=== PATIENT | male | born 1930 | race Caucasian/White ===

== ENCOUNTER → 2016-09-27 14:21 | Emergency (ER) | payer MEDICARE ==
--- NOTE | 2016-09-27 15:21 | RAD ---
Indication: Chest pain. Single frontal view of the chest performed at 1500 hours was reviewed. Comparison is made with previous exam dated November 24, 2015. Cardiomegaly. Lung steve demonstrate no pleural fluid, pneumonia or pneumothorax. IMPRESSION: CARDIOMEGALY WITHOUT EVIDENCE OF ACTIVE CARDIOPULMONARY DISEASE.
[2016-09-27 15:28] LABS: Hematocrit 33 % (42-52); Mean Corpuscular HGB Conc 33 g/dl (31-36); Mean Corpuscular Hemoglobin 33 pg (27-31); Mean Corpuscular Volume 99 fL (80-94); Mean Platelet Volume 8 um3 (7.4-10.4); Red Blood Count 3.37 10^6/ul (4.0-5.4); Red Cell Distribution Width 15 % (10.5-15); White Blood Count 6.4 10^3/ul (3.5-10.8)
[2016-09-27 15:44] LABS: Albumin 3.6 g/dL (3.2-5.2); BUN/Creatinine Ratio 16.5 (8-20); Calcium 8.7 mg/dL (8.6-10.3); EGFR African American 43.8 (>60); Globulin 2.8 g/dL (2-4); Potassium 4.8 mmol/L (3.5-5.0); Total Bilirubin 1.1 mg/dL (0.2-1.0); Total Protein 6.4 g/dL (6.4-8.9)
[2016-09-27 15:45] LABS: Troponin I 0.03 ng/mL (<0.04)
--- NOTE | 2016-09-27 17:32 | RAD ---
HISTORY: Abdominal pain COMPARISONS: CT dated November 18, 2006 TECHNIQUE: Multiple transverse and longitudinal ultrasound images were obtained of the right upper quadrant of the abdomen using grayscale and color Doppler imaging. FINDINGS: The study is limited by patient bowel gas. LIVER: The liver is normal in shape, size, contour, and echogenicity. There are no focal parenchymal masses. There is normal hepatopedal flow of the portal vein on Doppler imaging. BILIARY TREE: There is ectasia of the common duct. The common duct measures 1.1 cm. GALLBLADDER: The patient is status post cholecystectomy. PANCREAS: The pancreas is obscured by overlying bowel gas. RIGHT KIDNEY: The right kidney is normal in shape, size, contour, and echogenicity. There is no hydronephrosis or nephrolithiasis. The right kidney measures 10 x 5 x 4.4 cm. AORTA AND IVC: Obscured by overlying bowel FLUID: There are no pleural effusions. There is no free fluid within the hepatorenal recess. OTHER FINDINGS: None. IMPRESSION: 1. LIMITED STUDY. 2. STATUS POST MASTECTOMY. 3. ECTASIA OF THE COMMON BILE DUCT.
[2016-09-27 18:14] VITALS: BP 133/44
--- NOTE | 2016-09-27 23:12 | ED ---
Theodore Harding Benjamin, scribed for Michael Santiago MD on 09/27/16 at 1557 . HPI Chest Pain - HPI Summary HPI Summary: 86yo male c/o chest pain last night around 11pm that lasted about 2 hours, Pt describes the pain as sharp and heavy. Pt has hx of CAD and cardiac stents. Pt had a stent placed in 1 month ago. Pt came to ED after consulting his doctor. - History of Current Complaint Chief Complaint: EDChestPainROMI Time Seen by Provider: 09/27/16 14:44 Hx Obtained From: Patient Onset/Duration: Started Hours Ago - 18 hours ago, Resolved Timing: Constant Initial Severity: Moderate Current Severity: Mild Pain Intensity: 0 Chest Pain Location: Diffuse Chest Pain Radiates: No Character: Pressure/Squeezing, Sharp/Stabbing Aggravating Factor(s): Nothing Alleviating Factor(s): Nothing Associated Signs and Symptoms: Positive: Negative - Additional Pertinent History Primary Care Physician: MOLLY - Allergy/Home Medications Allergies/Adverse Reactions: Allergies Allergy/AdvReac Type Severity Reaction Status Date / Time No Known Allergies Allergy Verified 01/08/15 13:23 PMH/Surg Hx/FS Hx/Imm Hx Endocrine/Hematology History: Reports: Hx Diabetes Cardiovascular History: Reports: Hx Aneurysm - AAA, Hx Angina, Hx Coronary Artery Disease - STENT, Hx Hypertension, Other Cardiovascular Problems/ Disorders - CAD, IDDM II Denies: Hx Congestive Heart Failure Respiratory History: Reports: Hx Chronic Obstructive Pulmonary Disease (COPD) History: Denies: Hx Dialysis, Hx Renal Disease Sensory History: Reports: Hx Contacts or Glasses, Hx Hearing Aid - left Opthamlomology History: Reports: Hx Contacts or Glasses - Cancer History Cancer Type, Location and Year: prostate - Surgical History Surgery Procedure, Year, and Place: cholecystectomy, [facility] w/ 4 stents,2012, right leg artery replacement, anerysm stent leg, Infectious Disease History: No Infectious Disease History: Denies: Traveled Outside the [place] in Last 30 Days - Family History Known Family History: Positive: Cardiac Disease - Social History Occupation: Retired Lives: With Family Alcohol Use: None Substance Use Type: Reports: None Hx Tobacco Use: Yes Smoking Status (MU): Current Every Day Smoker Type: Cigarettes Amount Used/How Often: 12- 14 cigarettes a day Have You Smoked in the Last Year: Yes Review of Systems Constitutional: Negative Eyes: Negative ENT: Negative Positive: Chest Pain - resolved now Respiratory: Negative Gastrointestinal: Negative Genitourinary: Negative Musculoskeletal: Negative Skin: Negative Neurological: Negative Psychological: Normal All Other Systems Reviewed And Are Negative: Yes Physical Exam Triage Information Reviewed: Yes Vital Signs On Initial Exam: Initial Vitals Temp Pulse Resp BP Pulse Ox 97.1 F 51 20 151/53 100 09/27/16 14:24 09/27/16 14:24 09/27/16 14:24 09/27/16 14:24 09/27/16 14:24 Vital Signs Reviewed: Yes Appearance: Positive: Well-Appearing, No Pain Distress, Well-Nourished Skin: Positive: Warm, Skin Color Reflects Adequate Perfusion, Dry Head/Face: Positive: Normal Head/Face Inspection Eyes: Positive: Normal, EOMI, SAMMY ENT: Positive: Normal ENT inspection, Hearing grossly normal, TMs normal Neck: Positive: Supple, Nontender Respiratory/Lung Sounds: Positive: Clear to Auscultation, Breath Sounds Present Cardiovascular: Positive: RRR Abdomen Description: Positive: Nontender, No Organomegaly, Soft Bowel Sounds: Positive: Present Musculoskeletal: Positive: Normal, Strength/ROM Intact Neurological: Positive: Normal, Sensory/Motor Intact, Alert, Oriented to Person Place, Time, CN Intact II-III Psychiatric: Positive: Affect/Mood Appropriate - Piper Coma Scale Coma Scale Total: 15 Diagnostics - Vital Signs Vital Signs Temp Pulse Resp BP Pulse Ox 09/27/16 14:59 44 27 99 09/27/16 14:45 48 09/27/16 14:44 52 23 97 09/27/16 14:43 172/58 09/27/16 14:27 97.9 F 50 16 151/53 99 09/27/16 14:24 97.1 F 51 20 151/53 100 - Laboratory Lab Results: Lab Results 09/27/16 09/27/16 09/27/16 Range/Units 15:15 15:15 15:15 WBC 6.4 (3.5-10.8) 10^3/ul RBC 3.37 L (4.0-5.4) 10^6/ul Hgb 11.0 L (14.0-18.0) g/dl Hct 33 L (42-52) % MCV 99 H (80-94) fL MCH 33 H (27-31) pg MCHC 33 (31-36) g/dl RDW 15 (10.5-15) % Plt Count 135 L (150-450) 10^3/ul MPV 8 (7.4-10.4) um3 Neut % (Auto) 81.0 (38-83) % Lymph % (Auto) 7.1 L (25-47) % [place] % (Auto) 6.4 (1-9) % Eos % (Auto) 4.3 (0-6) % Baso % (Auto) 1.2 (0-2) % Absolute Neuts (auto) 5.2 (1.5-7.7) 10^3/ul Absolute Lymphs (auto) 0.5 L (1.0-4.8) 10^3/ul Absolute Monos (auto) 0.4 (0-0.8) 10^3/ul Absolute Eos (auto) 0.3 (0-0.6) 10^3/ul Absolute Basos (auto) 0.1 (0-0.2) 10^3/ul Absolute Nucleated RBC 0 10^3/ul Nucleated RBC % 0 INR (Anticoag Therapy) (0.89-1.11) Sodium 135 (133-145) mmol/L Potassium 4.8 (3.5-5.0) mmol/L Chloride 103 (101-111) mmol/L Carbon Dioxide 25 (22-32) mmol/L Anion Gap 7 (2-11) mmol/L BUN 31 H (6-24) mg/dL Creatinine 1.88 H (0.67-1.17) mg/dL Est GFR ( Amer) 43.8 (>60) Est GFR (Non-Af Amer) 34.0 (>60) BUN/Creatinine Ratio 16.5 (8-20) Glucose 183 H (70-100) mg/dL Lactic Acid 2.0 (0.5-2.0) mmol/L Calcium 8.7 (8.6-10.3) mg/dL Total Bilirubin 1.10 H (0.2-1.0) mg/dL AST 378 H (13-39) U/L ALT 273 H (7-52) U/L Alkaline Phosphatase 123 H (34-104) U/L Troponin I 0.03 (<0.04) ng/mL Total Protein 6.4 (6.4-8.9) g/dL Albumin 3.6 (3.2-5.2) g/dL Globulin 2.8 (2-4) g/dL Albumin/Globulin Ratio 1.3 (1-3) 05// Range/Units 15:15 WBC (3.5-10.8) 10^3/ul RBC (4.0-5.4) 10^6/ul Hgb (14.0-18.0) g/dl Hct (42-52) % MCV (80-94) fL MCH (27-31) pg MCHC (31-36) g/dl RDW (10.5-15) % Plt Count (150-450) 10^3/ul MPV (7.4-10.4) um3 Neut % (Auto) (38-83) % Lymph % (Auto) (25-47) % [place] % (Auto) (1-9) % Eos % (Auto) (0-6) % Baso % (Auto) (0-2) % Absolute Neuts (auto) (1.5-7.7) 10^3/ul Absolute Lymphs (auto) (1.0-4.8) 10^3/ul Absolute Monos (auto) (0-0.8) 10^3/ul Absolute Eos (auto) (0-0.6) 10^3/ul Absolute Basos (auto) (0-0.2) 10^3/ul Absolute Nucleated RBC 10^3/ul Nucleated RBC % INR (Anticoag Therapy) 1.01 (0.89-1.11) Sodium (133-145) mmol/L Potassium (3.5-5.0) mmol/L Chloride (101-111) mmol/L Carbon Dioxide (22-32) mmol/L Anion Gap (2-11) mmol/L BUN (6-24) mg/dL Creatinine (0.67-1.17) mg/dL Est GFR ( Amer) (>60) Est GFR (Non-Af Amer) (>60) BUN/Creatinine Ratio (8-20) Glucose (70-100) mg/dL Lactic Acid (0.5-2.0) mmol/L Calcium (8.6-10.3) mg/dL Total Bilirubin (0.2-1.0) mg/dL AST (13-39) U/L ALT (7-52) U/L Alkaline Phosphatase (34-104) U/L Troponin I (<0.04) ng/mL Total Protein (6.4-8.9) g/dL Albumin (3.2-5.2) g/dL Globulin (2-4) g/dL Albumin/Globulin Ratio (1-3) Result Diagrams: 09/27/16 15:15 09/27/16 15:15 Lab Statement: Any lab studies that have been ordered have been reviewed, and results considered in the medical decision making process. - Radiology CXR Xray Interpretation: No Acute Changes - IMPRESSION: CARDIOMEGALY WITHOUT EVIDENCE OF ACTIVE CARDIOPULMONARY DISEASE. Radiology Interpretation Completed By: Radiologist - Ultrasound No standard instances Ultrasound Interpretation: No Acute Changes - US Abdomen - IMPRESSION: 1. LIMITED STUDY. 2. STATUS POST MASTECTOMY. 3. ECTASIA OF THE COMMON BILE DUCT. Ultrasound Interpretation Completed By: Radiologist - EKG 1431. Cardiac Rate: Bradycardia EKG Rhythm: Sinus Bradycardia EKG Interpretation: RBBB. EKG Comparison: No Significant Change - compared to 11/25/15 Chest Pain Course/Dx - Course Course Of Treatment: Mr. Gamez came in about 12 hours after an episode of chest pain that lasted a couple hours. His W/U was unremarkable for cardiac issues but I did find that his transaminases were elevated. I R/U'd a common bile stone with U/S. It is possible that his high dose of lipitor is responsible and I recommended that he hold it and F/U first of the week. - Diagnoses Provider Diagnoses: Chest pain - Provider Notifications Discussed Care Of Patient With: Dr. Ayala (Interventionalist) @[id number]. Discharge - Discharge Plan Condition: Stable Disposition: HOME Patient Education Materials: Chest Pain (ED) Referrals: Lucila Shine MD [Medical Doctor] - Additional Instructions: Your liver enzymes were a little elevated today. This could be from your cholesterol medication and I would recommend holding it until the first of the week when you should follow up with your doctor at [facility]. The documentation as recorded by the Theodore baron Benjamin accurately reflects the service I personally performed and the decisions made by me, Micahel Santiago MD.
== END | disposition home or self-care (01) ==
LOC: ED 14:21
DX: R07.9 Chest pain, unspecified (principal); I25.10 Atherosclerotic heart disease of native coronary artery without angina pectoris; Z95.5 Presence of coronary angioplasty implant and graft; E11.9 Type 2 diabetes mellitus without complications; I71.4 Abdominal aortic aneurysm, without rupture; I45.10 Unspecified right bundle-branch block; J44.9 Chronic obstructive pulmonary disease, unspecified; F17.210 Nicotine dependence, cigarettes, uncomplicated
CPT/HCPCS: 36415; 71010; 76705; 80053; 83605; 84484; 85025; 85610; 93005; 99283

== ENCOUNTER 2017-09-29 07:03 | Observation (INO) | payer MEDICARE ==
[2017-09-29] MEDS ORDERED: NS 0.9% 1000 ML* 2,000 ML IV ONE (07:10)
[2017-09-29] MEDS ORDERED: NS 0.9% 1000 ML* 1,000 ML IV ONE (07:25)
[2017-09-29 07:35] LABS: ABS Basophils 0.1 10^3/ul (0-0.2); ABS Eosinophils 0.2 10^3/ul (0-0.6); ABS Lymphocytes 0.9 10^3/ul (1.0-4.8); ABS Monocytes 0.7 10^3/ul (0-0.8); ABS Neutrophils 6.2 10^3/ul (1.5-7.7); ABS Nucleated RBC 0 10^3/ul; Eosinophil % 2.7 % (0-6); Hematocrit 34 % (42-52); Hemoglobin 11.5 g/dl (14.0-18.0); Lymphocyte % 11.4 % (25-47); Mean Corpuscular HGB Conc 34 g/dl (31-36); Mean Corpuscular Hemoglobin 34 pg (27-31); Mean Corpuscular Volume 99 fL (80-94); Mean Platelet Volume 7.5 um3 (7.4-10.4); Nucleated Red Blood Cells % 0.1; Platelet Count 151 10^3/ul (150-450); Red Blood Count 3.44 10^6/ul (4.0-5.4); Red Cell Distribution Width 14 % (10.5-15); White Blood Count 8.1 10^3/ul (3.5-10.8)
[2017-09-29 07:43] LABS: INR 0.9 (0.77-1.02)
--- NOTE | 2017-09-29 07:50 | RAD ---
Indication: Facial twitching. Question seizure. Comparison: October 28, 2016 MRI brain and October 26, 2016 CT brain. Technique: Noncontrast CT vertex of skull through foramen magnum. Report: Mild to moderate prominence of the cerebral sulci most prominent along the bilateral sylvian fissures. Proportional enlargement of the ventricles. Patent basal cisterns. Decreased density in the periventricular and subcortical white matter while non-specific is most likely due to chronic microangiopathy. Negative for sanon matter white matter obscuration, intra or extra-axial hemorrhage, or mass effect. No fracture or suspicious lesion of the calvarium or skull base. Clear visualized paranasal sinuses and mastoid air spaces. Unremarkable scalp. IMPRESSION: 1. No acute intracranial process evident. 2. Involutional change and stigmata of chronic small vessel ischemic disease. Results discussed with Dr. sEteban 09/29/2017 7:45 AM EDT
[2017-09-29 07:52] LABS: EGFR Non-African American 36.9 (>60)
[2017-09-29] MEDS ORDERED: Labetalol IV* 5 MG/ML 20 ML VIAL IV PUSH ONE (07:52)
[2017-09-29] MEDS ORDERED: Labetalol IV* 5 MG/ML 20 ML VIAL ONE (07:53)
[2017-09-29] MEDS ORDERED: Magnesium Sulfate 1 GM IV* 1 GM/100 ML BAG IV ONE (07:58)
[2017-09-29] MEDS ORDERED: Aspirin TAB* 325 MG PO ONE (08:15)
--- NOTE | 2017-09-29 08:52 | RAD ---
Indication: Hypertension, seizures. Single frontal view of the chest performed at 0835 hours was reviewed. Comparison is made with previous exam dated October 26, 2016. Cardiomegaly is noted. No alveolar consolidation is noted. No pneumothorax is noted. IMPRESSION: CARDIOMEGALY. NO EVIDENCE OF ALVEOLAR CONSOLIDATION IS NOTED.
[2017-09-29] MEDS ORDERED: Aspirin EC TAB* 81 MG TAB.EC ONE (09:12)
[2017-09-29] MEDS ORDERED: Aspirin 81 mg CHEW TAB* 81 MG TAB.CHEW PO ONE (09:16)
[2017-09-29] MEDS ORDERED: Dextrose 50% Syringe 50 ML* 25 GM/50 ML SYRINGE IV PUSH PRN (09:57)
[2017-09-29] MEDS: Metoprolol Tartrate IV* 1 MG/ML 5 ML VIAL IV PRN ×2 (10:38→20:45)
[2017-09-29] MEDS ORDERED: ALPRAZolam TAB* 0.5 MG PO PRN (11:20)
--- NOTE | 2017-09-29 12:01 | RAD ---
INDICATION: Difficulty speaking. Evaluate for CVA. No acute CT findings on concurrent CT brain COMPARISON: CT brain same date; MRI brain October 28, 2016 TECHNIQUE: sagittal T1 FLAIR, axial diffusion, axial T1 FLAIR, axial T2, axial T2 FLAIR, and SWI images were acquired. FINDINGS: Craniocervical junction: The craniocervical junction appears normal. Ventricles/sulci: There is cortical atrophy with compensatory dilatation of the CSF spaces. Brain parenchyma: There are T2-weighted hyperintensities in the periventricular and subcortical white matter consistent with chronic microvascular ischemia. Intracranial hemorrhage: There is no intracranial hemorrhage. Extra-axial spaces: There are no extra-axial fluid collections or masses. Orbits: There are no MR abnormalities of the orbital structures. Paranasal sinuses/mastoid: The paranasal sinuses are clear. There is a small amount of fluid in the mastoid air cells bilaterally which could be related to mastoiditis. The appearance is unchanged. Vascular: No abnormalities are seen. Other: None IMPRESSION: CORTICAL ATROPHY WITH CHRONIC MICROVASCULAR ISCHEMIC CHANGES. NO FINDINGS OF ACUTE ISCHEMIA. CHRONIC, SMALL AMOUNT BILATERAL MASTOID AIR CELL EFFUSIONS
--- NOTE | 2017-09-29 13:01 | HP ---
CC: Dr. Lucila Shine; Dr. Jacinta Paul, [place], [place] * HISTORY AND PHYSICAL: DATE OF ADMISSION: 09/29/17 PRIMARY CARE PROVIDER: Dr. Lucila Shine, [place] and Dr. Jacinta Paul, [place]. ATTENDING PHYSICIAN: Dr. Lilibeth Sadler * (dictated by Marisa Meyer, KAREN). CHIEF COMPLAINT: Trouble speaking and tremors. HISTORY OF PRESENT ILLNESS: Mr. Gamez is an 87-year-old male with past medical history significant for coronary artery disease; peripheral vascular disease; diabetes mellitus, non-insulin dependent; prostate cancer, status post radiation; hypertension; COPD; pulmonary fibrosis, who states that he had been in his usual state of health until last night. The patient states that 5 or 6 days ago, he was in [place] and seen by his primary care provider. He then travelled to [place] where he spends his garner. The patient's went into the hospital 2 days ago. The patient denies any recent fevers, chest pain , shortness of breath, nausea, vomiting, diarrhea. He states he had dizziness last evening, has not been sleeping well. His blood pressures have been elevated. At approximately 3 a.m. this morning, he noticed he was having whole body tremors and trouble speaking. This lasted for approximately an hour and a half and he called EMS. Please note that the patient states he has not been taking his home medications accordingly since his has been in the hospital. He states that his diabetes and blood pressure are well controlled when he takes his medications accordingly. According to EMS, the patient was having stuttering speech during his tremors. He was found to have a blood pressure of 190/110 and he was brought to the emergency room for further evaluation. While in the emergency room, the patient continued to be noted to be hypertensive with systolic blood pressures in the 200s. He had a brain CT showing no acute findings. He had a chest x-ray showing cardiomegaly, no acute findings. He had an EKG with no changes from previous EKG from 2017. Due to the patient's neurological complaints, Neurology was consulted. The patient was a tPA candidate due to his symptoms being vague and no exact window. Due to his age, he is not an intervention candidate. Hospitalists were asked to evaluate the patient for admission. PAST MEDICAL HISTORY: 1. Coronary artery disease. 2. Peripheral vascular disease. 3. Macular degeneration. 4. Non-insulin dependent diabetes mellitus. 5. Prostate cancer, status post radiation. 6. Hypertension. 7. COPD. 8. Pulmonary fibrosis. 9. Abdominal aortic aneurysm. 10. Anxiety. 11. Heart Failure. 12. Tobacco Abuse. PAST SURGICAL HISTORY: 1. Status post cardiac stenting x4. 2. Status post bilateral lower extremity stenting. 3. Status post AAA repair. 4. Status post tonsillectomy. HOME MEDICATIONS: Include: 1. ICaps 1 tablet oral twice daily. 2. Percocet 5-325 mg 1 tab oral daily as needed for pain. 3. Spiriva 18 mcg 1 capsule inhalation daily. 4. Yatuirod-viarwvwxu-dnfdgjodw 4 drops into the affected ear 3 times daily. 5. Glimepiride 2 mg oral daily. 6. Atorvastatin 10 mg oral daily. 7. Cinnamon 500 mg oral daily. 8. Fish oil 300-1,000 mg 1 capsule oral daily. 9. Nitroglycerin 0.4 mg sublingual every 5 minutes as needed for chest pain. 10. Aspirin 81 mg oral daily. 11. Wellbutrin SR 150 mg oral twice daily. 12. Losartan/hydrochlorothiazide 50/12.5 1 tab oral daily. 13. Plavix 75 mg oral daily. 14. Flomax 0.4 mg oral daily at bedtime. 15. Xanax 0.5 mg oral twice daily as needed for anxiety. 16. Metoprolol tartrate 25 mg oral twice daily. 17. Biotin 10,000 mg oral daily. ALLERGIES: PREDNISONE. FAMILY HISTORY: The patient's father had a history of coronary artery disease and a CVA. He denies any family history of diabetes mellitus or cancer. SOCIAL HISTORY: The patient is a current smoker, smoking approximately 5 cigarettes daily. He has a 70-year smoking history. He rarely drinks alcohol. Denies recreational drug use. The patient's , Nellie Gamez, will be his surrogate decision maker in the event he is unable to make decisions for himself. REVIEW OF SYSTEMS: I performed an 11-point review of systems. All the pertinent positives and negatives are mentioned in the history of present illness. The remaining review of systems is negative. PHYSICAL EXAMINATION GENERAL APPEARANCE: The patient is alert, pleasant and appears to be in no acute distress. VITAL SIGNS: Temperature 98.4, heart rate 69, respiratory rate 23, O2 sat 93% on room air, blood pressure 186/90. HEENT: Normocephalic, atraumatic. Pupils are equal and reactive to light. Extraocular movements are intact. RESPIRATORY: There is no accessory muscle use. The lungs are clear to auscultation bilateral. CARDIOVASCULAR: Regular rate and rhythm. S1 and S2 present. There are no murmurs, rubs, or gallops heard. ABDOMEN: Soft, nontender, nondistended. Bowel sounds present x4. EXTREMITIES: There is trace bilateral lower extremity edema. DP and PT pulses are 2+ and symmetric. MUSCULOSKELETAL: There is no clubbing or cyanosis noted. The patient exhibits good strength in all extremities. NEUROLOGIC: The patient is alert and oriented x3. Cranial nerves II through XII are grossly intact. The patient has strong and equal plantar and dorsiflex bilaterally. He is able to lift both legs off the bed. He has no pronator drift. His handgrips are equal. His smile is symmetric. His tongue is midline. The patient is able to do bilateral heel from ankle to knee. He does have a mild ataxia with this on the left side. The patient has stuttering speech. No tremors noted. PSYCHOLOGICAL: The patient is calm and cooperative. SKIN: There are no rashes or abnormalities seen. DIAGNOSTIC STUDIES/LABORATORY DATA: Sodium 140, potassium 4.2, chloride 105, CO2 28, BUN 38, creatinine 1.75, glucose 198, magnesium 1.7. White blood cell count 8.1, hemoglobin 11.5, hematocrit 34, and platelet count 151. ESR 51. Troponin 0.05 and 0.04. EKG shows a sinus rhythm and a rate of 76. There is a right bundle-branch block and a prolonged QTc. There are T-wave inversions in V2 and [address] depression in V4 to V6 in lead II. This is all similar to previous EKG from 08/09. Chest x-ray from today. Radiologist's impression: Cardiomegaly. No evidence of alveolar consolidation. Brain CT from today. Radiologist's impression: No acute intracranial process evident. Involutional change and stigmata of chronic small vessel ischemic disease. IMPRESSION: Mr. Gamez is an 87-year-old male with past medical history significant for coronary artery disease, peripheral vascular disease, macular degeneration, diabetes mellitus, prostate cancer, hypertension, chronic obstructive pulmonary disease, pulmonary fibrosis, who presented to the emergency room with complaints of whole body tremors and trouble speaking. He will be admitted as an observation for further workup to rule out cerebrovascular accident. ASSESSMENT/PLAN: 1. Stuttering speech and tremors. The patient had an EEG while in the emergency room. Per Neurology, does not show any seizure activity. The patient 's head CT was negative. He was hypertensive in the ER. Some of his symptoms could be secondary to hypertensive encephalopathy and the patient reports not taking his blood pressure medications. For now, I am going to just place him on metoprolol tartrate IV every 4 hours for systolic blood pressures greater than 190 as I would like to allow for permissive hypertension in the setting of a possible cerebrovascular accident. We will get an MRI without contrast. We will get bilateral carotid Dopplers. The patient will be continued on his aspirin and Plavix. We will get an echo with a bubble study. Neurology will see the patient later today. 2. Elevated troponin. The patient denies any chest pain. He has no EKG changes. I suspect this is his baseline elevated troponin in the setting of chronic kidney disease. 3. Chronic kidney disease stage 3. The patient's creatinine appears to be near his baseline. 4. Hypomagnesium. The patient received magnesium replacement in the ER. We will recheck his magnesium level in the morning. 5. Diabetes mellitus. The patient will have glucose checks a.c. and h.s. with lispro sliding scale coverage. We will hold his glimepiride while he is in the hospital. 6. Hypertension. The patient has been hypertensive while in the emergency room , but again we are going to allow permissive hypertension in the setting of a possible cerebrovascular accident. We will hold the patient's metoprolol, losartan and hydrochlorothiazide for now and use metoprolol tartrate IV every 4 hours as needed for systolic blood pressures greater than 190. 7. Hyperlipidemia. Continue home statin. 8. History of coronary artery disease. Continue home aspirin, Plavix, metoprolol, and statin. 9. Hyperlipidemia. We will check fasting lipids in the morning. For now, he will be continued on his home atorvastatin. 10. History of prostate cancer. Status post radiation. We will continue the patient's Flomax for his benign prostatic hyperplasia as a result of his prostate cancer. 11. Chronic obstructive pulmonary disease. The patient has no signs of an acute exacerbation at this time. Continue home Spiriva. 12. Heart Failure. No signs of acute exacerbation at this time. 13. Tobacco abuse. We will offer Nicotine replacement. He has been encouraged to stop smoking. 14. Fluids, electrolytes, and nutrition: The patient will be on a heart- healthy diet. 15. Code status: Full code. 16. DVT prophylaxis: The patient is at highest risk. He will have subcu heparin and TEDs. 17. Disposition: Observation. TIME SPENT: Time for this admission was approximately 60 minutes, greater than half of that was spent with the patient discussing medications, past medical history, the events leading up to his arrival today and performing a physical examination. The case has been reviewed with the attending, Dr. Sadler, who agrees with the plan of care. Reviewed by SKY AG 10/01/17 0936 [id number]/[facility] #: [id number] JULIO
[2017-09-29] MEDS: Insulin LISPRO* 1 UNITS UNIT SUBCUT SCH ×2 (13:35→17:32)
--- NOTE | 2017-09-29 14:16 | EEG ---
ELECTROENCEPHALOGRAPHY: DATE OF STUDY: 09/29/17 He is in the emergency room, to be admitted. REFERRING PROVIDER: Dr. Sarmiento. CLINICAL PROBLEM: Episodes of difficulty speaking, starting upon waking this morning. The patient apparently has stuttering speech. MEDICATIONS: Not yet known. REPORT: This 16-channel EEG is remarkable for background rhythms consisting of an occipital rhythm at about 6 to 7 cycles per second, which is fairly symmetric. Muscle artifacts are seen frequently with chin and mouth tremors and mouth movements periodically throughout the recording. During quieter portions of the tracing, rhythms are fairly symmetrical and mainly in the theta and deltoid range. The patient drowses and sleeps frequently with some vertex slowing and sleep spindles seen fairly frequently. The patient snores and has chin movements during the sleep as well. Activation procedure was not attempted. The patient was woken at the end of the recording with previously described waking rhythms resuming. There are no focal or epileptiform abnormalities. CLINICAL IMPRESSION: Abnormal EEG due to generalized slowing of the background rhythms, consistent with diffuse cerebral dysfunction. There were no focal or epileptiform features to this recording. [id number]/[facility] #: [id number] MTDD
[2017-09-29] MEDS: Heparin VIAL(*) 5000 UNITS/ML VIAL (FIVE THOUSAND) SUBCUT SCH ×2 (14:51→21:45)
[2017-09-29] MEDS ORDERED: clonazePAM TAB(*) 0.5 MG PO ONE (14:56)
--- NOTE | 2017-09-29 17:32 | RAD ---
CPT II Codes: 3100F INDICATION: Speech disturbance COMPARISON: None TECHNIQUE: Multiple santacruz scale, color and doppler tracings of the common, internal and external carotid and vertebral arteries were obtained. Stenosis estimations reflect velocity criteria that have been correlated to angiographic stenosis calculations based on the distal internal carotid diameter. Right carotid: There is coarsely calcified atherosclerotic plaque within the right carotid bulb. The peak systolic velocity in the proximal right internal carotid artery is 88 cm/s and the maximum end-diastolic velocity is 13 cm/s. The peak systolic velocity in the distal common carotid artery is 78 cm/s and the maximum end-diastolic velocity is 9 cm/s. The internal to common carotid ratio is 1.13. This would be consistent with a less than 50% stenosis. Left carotid: There is coarsely calcified atherosclerotic plaque within the left carotid bulb. The peak systolic velocity in the proximal right internal carotid artery is 75 cm/s and the maximum end-diastolic velocity is 10 cm/s. The peak systolic velocity in the distal common carotid artery is 90 cm/s and the maximum end-diastolic velocity is 12 cm/s. The internal to common carotid ratio is 0.83. This would be consistent with a less than 50% stenosis. Vertebrals: The left vertebral artery exhibits bidirectional flow. The left subclavian artery exhibits spectral broadening relative to the right vertebral artery. IMPRESSION: 1. There is coarse atherosclerotic calcification at the bilateral carotid bulbs but the flow velocity and ratios correspond to less than 50% degree stenosis. 2. 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 Please correspond to signs and symptoms of subclavian steal syndrome which can include visual disturbance, dizziness and/or in balance caused by or exacerbated during utilization of the left upper extremity.
--- NOTE | 2017-09-29 17:49 | ECHO ---
Patient: VINICIO PEÑA [facility] Rec#: [id number] : 1930 Date: 09/29/2017 Age: 87y Height: 182.88 cm / 72.0 in Weight: 90.72 kg / 199.9 lbs Sex: M BSA: 2.13 Room#: [facility] Admit Date#: 09/29/2017 Type: Inpatient Referring: Marisa Whittington NP Reading: Edward Tian MD Upsetting Machine Operator: Marisa Odell RDCS CC: Emily Sheridan MD Transthoracic Echocardiogram Indication: TIA BP: 187/78 HR: 65 Rhythm: NSR Findings History: CAD, S/P PCI, PVD, DM, HTN, COPD, pulmonary fibrosis, smoker, AAA repair, angina. Technical Comments: The study quality is fair. The study is technically limited due to poor parasternal windows. Completed at 1445. Left Ventricle: The left ventricular chamber size is normal. Moderate concentric left ventricular hypertrophy is observed. There is a prominent septal knuckle. Global left ventricular wall motion and contractility are within normal limits. There is normal left ventricular systolic function. The estimated ejection fraction is 55-60%. Abnormal left ventricular diastolic function is observed. Abnormal left ventricular diastolic filling is observed, consistent with impaired relaxation. Left Atrium: The left atrium is mildly dilated. Right Ventricle: Moderator Band present. The right ventricle is mild to moderately dilated. The right ventricle wall thickness is mildly increased. The right ventricular global systolic function is normal. Right Atrium: The right atrial cavity size is normal. There were late bubbles seen in the left atrium.NOt consistant with PFO Aortic Valve: The aortic valve is trileaflet. The aortic valve leaflets are mildly thickened. There is evidence of aortic sclerosis without stenosis. There is no evidence of aortic regurgitation. There is no evidence of aortic stenosis. Mitral Valve: The mitral valve leaflets are mildly thickened. There is mild mitral regurgitation. There is no evidence of mitral stenosis. Tricuspid Valve: The tricuspid valve leaflets are normal. There is trace tricuspid regurgitation. Unable to estimate the right ventricular systolic pressure. There is no tricuspid stenosis. Pulmonic Valve: The pulmonic valve appears normal. There is trace to mild pulmonic regurgitation. There is no pulmonic stenosis. Pericardium: There is no significant pericardial effusion. Aorta: There is mild dilatation of the ascending aorta. The aortic arch is not well visualized. There is moderate dilatation of the aortic root. Pulmonary Artery: The main pulmonary artery appears normal. Venous: The inferior vena cava is dilated. There is an approximate 50% respiratory change in the inferior vena cava dimension. Contrast: Normal saline was used as contrast for the bubble study. Images 70 and 71. Intravenous contrast was used to help determine presence of intracardiac shunting. Conclusions Global left ventricular wall motion and contractility are within normal limits. There is normal left ventricular systolic function. The estimated ejection fraction is 55-60%. The right ventricular global systolic function is normal. There were late bubbles seen in the left atrium.NOt consistant with PFO There is evidence of aortic sclerosis without stenosis. There is mild mitral regurgitation. There is trace tricuspid regurgitation. Unable to estimate the right ventricular systolic pressure. Measurements Name Value Normal Range RVIDd (AP) 2D 4.2 cm (0.9 - 2.6) RVDdMajor (2D) 4.9 cm (2.2 - 4.4) RVAW (2D) 0.7 cm (0.2 - 0.5) RAd ISD 4CH 4.8 cm (3.4 - 4.9) RA (A4C)W 3.7 cm (2.9 - 4.6) IVSd (2D) 1.5 cm (0.6 - 1) LVPWd (2D) 1.5 cm (0.6 - 1) LVIDd (2D) 5 cm (3.6 - 5.4) LVIDs (2D) 3.8 cm - LV FS (2D) 25 % (25 - 45) Aortic Annulus 2.1 cm (1.4 - 2.6) Ao root diameter (2D) 4.4 cm (2.1 - 3.5) Ascending Ao 3.5 cm (2.1 - 3.4) LA dimension (AP) 2D 4.2 cm (2.3 - 3.8) LAd ISD 4CH 5 cm (2.9 - 5.3) LA ISD 4CH W 4.2 cm (2.5 - 4.5) Name Value Normal Range LA ESV SP 4CH (A/L) 52 ml - LA ESV SP 2CH (A/L) 94 ml - LA ESV BP (A/L) 72 ml - LA ESV BP (A/L) index 34 ml/m2 - LA ESV SP 4CH (MOD) 46 ml - LA ESV SP 2CH (MOD) 82 ml - Name Value Normal Range MV E-wave Vmax 0.6 m/sec - MV deceleration time 409.8 msec - MV A-wave Vmax 1.2 m/sec - MV E:A ratio 0.49 ratio - LV septal e' Vmax 0.04 m/sec - LV lateral e' Vmax 0.04 m/sec - LV E:e' septal ratio 15 ratio - LV E:e' lateral ratio 15 ratio - Name Value Normal Range AV Vmax 1.2 m/sec - AV VTI 29.67 cm - AV peak gradient 5.56 mmHg - AV mean gradient 3.03 mmHg - LVOT diameter 2 cm - LVOT Vmax 0.71 m/sec - LVOT VTI 19.67 cm - LVOT peak gradient 2.03 mmHg - LVOT mean gradient 1.21 mmHg - GREG Vmax 0.42 m/sec - Name Value Normal Range IVC diameter 2.6 cm - Name Value Normal Range PV Vmax 0.71 m/sec - PV peak gradient 2.05 mmHg -
[2017-09-29] MEDS: buPROPion SR TAB.SR* 150 MG PO SCH (20:37)
[2017-09-29 20:58] LABS: Urine Appearance Clear; Urine Blood 1+ (Negative); Urine Color Yellow; Urine Ketones Negative (Negative); Urine Protein 3+(>=500 mg/dL) (Negative); Urine Specific Gravity 1.013 (1.010-1.030); Urine Urobilinogen Negative (Negative)
[2017-09-29] MEDS ORDERED: Tamsulosin CAP* 0.4 MG PO SCH (21:00)
[2017-09-29] MEDS ORDERED: Atorvastatin* 10 MG TAB PO SCH (21:00)
[2017-09-29] MEDS ORDERED: Nicotine Patch Removal NOTE PATCH OFF SCH (21:00)
--- NOTE | 2017-09-29 22:02 | CONS ---
[facility]Y CONSULTATION: DATE OF CONSULT: 09/29/17 LOCATION: He is an inpatient in room 443. REFERRING PROVIDER: Marisa Le NP CHIEF COMPLAINT: Tremors, difficulty speaking. HISTORY OF PRESENT ILLNESS: Ed Gamez is an 87-year-old right-handed man, who woke up in the early childhood director hours yesterday with feeling extremely cold. He started to have generalized shaking. There was no loss of consciousness and he did not have any pain anywhere. The shaking persisted and he apparently called an ambulance at 3 in the morning. He was brought into the hospital where he would exhibit generalized shaking of his upper extremities and face and had stuttering speech. He was quite hypertensive with systolic over 200 and diastolic over 100. He was given some labetalol with some improvement in his blood pressures, but the shaking persisted. He had a teleneurology consult from the [facility] and was thought not to be a tPA candidate due to vagueness of symptoms and no clear time window. I do not have that consultation, but reading that from Dr. Esteban' s note and Marisa Le's admission. The patient says that he had been feeling well as he just returned from [place]. His ended up in the hospital down in [place], [place] with sounds like an acute intestinal disorder. He says that she is 86 and surgery was contemplated, but indicates that at her age and his age that is not likely to be done. He also says that his dog who is 14 years of age was injured or had some type of medical problem when being transported up from [place]. He gets tearful describing these problems. When I entered the room, he was asleep and there are no involuntary movements, but as we spoke and we talked, he started to exhibit movements, which will be described below. PAST MEDICAL HISTORY: Notable for coronary artery disease, peripheral vascular disease, macular degeneration, type 2 diabetes, prostate cancer, status post radiation, hypertension, pulmonary fibrosis, abdominal aortic aneurysm repair, cardiac stenting, lower extremity stenting. MEDICATIONS: He was not taking his medications at home for at least 3 days. He resumed his medicines about a day ago. Medicines he is supposed to be on at home include: 1. Plavix 75 mg p.o. daily. 2. Xanax 0.5 mg p.o. b.i.d. p.r.n. anxiety. 3. Metoprolol 25 mg p.o. b.i.d. 4. Losartan/hydrochlorothiazide 50/12.5 one p.o. daily. 5. Wellbutrin SR 150 mg p.o. b.i.d. 6. Aspirin 81 mg p.o. daily. 7. Atorvastatin 80 mg p.o. daily. 8. Amlodipine 10 mg p.o. daily. 9. Glimepiride 1 mg p.o. daily. 10. Tramadol 50 mg p.o. q.6 hours p.r.n. pain. ALLERGIES: He is said to be allergic to PREDNISONE. When I looked at the records, he was admitted a couple of years ago with a sense of "going crazy." He had been started on prednisone a day or two before that and it was thought to be a reaction to the prednisone. FAMILY HISTORY: Noncontributory. SOCIAL HISTORY: He still smokes about 5 cigarettes a day. He does not drink alcohol. REVIEW OF SYSTEMS: Negative for head trauma, seizures, or strokes. He has not had any episodes of loss of awareness. He has significant joint problems in his knees and hips. He just returned from [place] and had seen his primary care doctor there about a week ago. The difficulties with his and his 14- year-old dog are described above. He has not had any nausea or vomiting. He does not feel short of breath. He has no chest pain. There is no other history of psychiatric disease. He is very hard of hearing and does not have his hearing aids because the battery ran out. PHYSICAL EXAMINATION: He is well nourished and well hydrated. He has been afebrile, most recent temperature 98.2 temporally. Blood pressure most recently 150/36, but was 208/100 when he came in. Heart rate is running in the 60s and seems regular. Respiratory rate 24 and oxygen saturation is 100% on room air. Neck is supple. Head is atraumatic. Heart is in a regular rhythm without murmurs heard. Lungs are clear. Carotid pulses are symmetrical and there are no cervical bruits. Her oral mucosa is moist and atraumatic. Neurological Exam: Pupils react equally from about 3 to 2 mm. Eye movements are full. Visual steve are full to confrontation. Funduscopic exam reveals sharp discs with silver wiring. Facial musculature is symmetric. He has repetitive bursts of facial contraction with squinting, puckering of the lower face, and then stuttering. It occurs frequently and intensifies as he seems to get more stressed. It was not present at all when he was sleeping and came on as we talked and he became more alert. He would have simultaneous contraction and rigorous-like shaking of the shoulders and upper trunk. There is no shaking or abnormal movements in the legs. Facial sensation is symmetric to light touch. Palate and tongue appear normal and tongue protrudes in the midline. He stutters and stammers when he has episodes of spasms, but not otherwise. He is extremely hard of hearing and mainly hears out of his left ear when I talk very loudly. Motor exam reveals normal tone in the limbs. When he has the shuttering episodes, his arms stiffen. He has normal strength to command proximally and distally in the arms and legs. Sensory exam is appropriate for age. He has loss of vibration and light touch in the toes. He has normal sensation in the hands. Reflexes are trace in the arms and at the knees, absent at the ankles. Plantar responses are flexor bilaterally. [id number] maneuver is normal bilaterally in between spasms. There is no asterixis or myoclonus. He is alert and able to provide a pretty good history barring the hearing barrier. He is able to provide reasonably good details of the last few days. He gets tearful describing his current home situation. DIAGNOSTIC STUDIES/LAB DATA: Laboratory data includes an MRI of the brain interpreted as showing atrophy with chronic ischemic changes. I reviewed the images and I agree. EEG done earlier today revealed some mild generalized slowing. There were no epileptiform discharges including during spasms of facial muscles. Other laboratory data notable for a CBC with a hemoglobin of 11.4, hematocrit 34 %, otherwise a normal CBC. Sedimentation rate is elevated at 51 with upper limit of normal being 40. His INR is within normal limits as his PTT. Chemistries notable for a creatinine of 1.75, which is similar to historical norms. BUN is 38, which is a bit elevated versus historical norms. Glucose 198 this morning and the rest of the chemistry profile was fairly unremarkable. Magnesium is a little bit low at 1.7. Troponin elevated at 0.04, but this is similar if not lower than historical norms. C-reactive protein is elevated at 17.64. TSH is normal at 2.5. IMPRESSION AND PLAN: Impression is that of abrupt onset of dyskinesias, which are bilateral and symmetric and not suggestive of a cerebrovascular event. His EEG is normal and there is no alternation in awareness in spite of the bilateral motor features, so I do not think it is epileptiform either. He had stopped his medications and so perhaps it is a withdrawal from his Wellbutrin or perhaps his alprazolam, but he was not on it very much. He did have an admission for "going crazy" a couple of years ago and he is under a tremendous stress and so this is may be psychogenic. I would recommend giving him some clonazepam 0.5 mg just 1 dose to see how he responds to that. Recommend additional blood work to look for evidence of vasculitis particularly with his elevated sedimentation rate and CRP. I recommend checking more extensive thyroid functions as well. Marisa Meyer is correcting his magnesium and rechecking a level. A carotid ultrasound is pending, although again I do not think this is cerebrovascular. Urinalysis is still pending, but he does not have a fever or an elevated white count to suggest an infection. If he responds to the clonazepam, then I would probably give him a standing dose for a little while and if all of his labs come back negative, perhaps get a psychiatric opinion as well. I will continue to follow him along with you. [id number]/CPS #: [id number] JULIO
[2017-09-30] MEDS: Heparin VIAL(*) 5000 UNITS/ML VIAL (FIVE THOUSAND) SUBCUT SCH ×2 (05:16→13:22)
[2017-09-30 05:58] LABS: EGFR Non-African American 44.4 (>60)
--- NOTE | 2017-09-30 07:57 | PN ---
Subjective Date of Service: 09/30/17 Interval History: Feels better this am. Spoke with his nurse who reports some slurred speech overnight. The patient was aware of it but felt his mouth was dry. He has had no more tremor like episodes and feels it may have been lack of medication and stress. He did have some bradycardia last night and his blood pressure remained elevated, requiring prn medication. He denies any new issues, specifically, no focal weakness or numbness, no speech difficulties this am, no gait problems, no confusion. He is pleasant this am and excited about the possibility of going home. We spoke at length about his who is sick but getting good care and improving. He was very upset about his dog yesterday as well who seems to be doing better. MRI: No evidence of acute stroke. Cortical atrophy and chronic white matter changes. Films reviewed and agree with findings EEG: generalized slowing, no epileptiform activity Carotid U/S: Coarse plaques in bulbs but < 50% stenosis. Evidence of possible subclavian steal with stenosis of subclavian artery TTE: EF 55-60%, No PFO, mild valve disease, no critical stenosis Cr: 1.75-->1.49 T3: Low Objective Active Medications: Alprazolam (Xanax Tab*) 0.5 mg PO BID PRN PRN Reason: ANXIETY Aspirin (Aspirin Ec Tab*) 81 mg PO DAILY [facility] Atorvastatin Calcium (Lipitor*) 5 mg PO BEDTIME [facility] Last Admin: 09/29/17 20:37 Dose: 5 mg Bupropion HCl (Wellbutrin Sr Tab*) 150 mg PO BID [facility] Last Admin: 09/29/17 20:37 Dose: 150 mg Clopidogrel Bisulfate (Plavix Tab*) 75 mg PO DAILY [facility] Device (Tiotropium Inhaler Device*) 1 each INH 0900 ONE Stop: 09/30/17 09:01 Dextrose (D50w Syringe 50 Ml*) 12.5 gm IV PUSH .FOR FS < 60 - SS PRN PRN Reason: FS < 60 Heparin Sodium (Porcine) (Heparin Vial(*)) 5,000 units SUBCUT Q8HR [facility] Last Admin: 09/30/17 05:16 Dose: 5,000 units Insulin Human Lispro (Humalog*) 0 - 5 units SUBCUT AC [facility] PRN Reason: Protocol Last Admin: 05/07/18 17:32 Dose: 3 unit Metoprolol Tartrate (Lopressor Iv*) 5 mg IV Q4H PRN PRN Reason: Systolic Bp Greater Than: 190 Last Admin: 09/29/17 20:45 Dose: 5 mg Nicotine (Nicotine Patch 7 Mg/24 Hr*) 1 patch TRANSDERM DAILY [facility] Pharmacy Profile Note (Nicotine Patch Removal Note*) 1 note PATCH OFF 2100 [facility] Last Admin: 09/29/17 20:27 Dose: Not Given Tamsulosin HCl (Flomax Cap*) 0.4 mg PO BEDTIME [facility] Last Admin: 09/29/17 20:37 Dose: 0.4 mg Tiotropium Lagrange (Spiriva Cap.Inh*) 1 cap INH DAILY [facility] Vital Signs 09/29/17 09/29/17 09/29/17 10:00 10:16 10:39 Temperature 97.9 F Pulse Rate 60 Respiratory 29 22 24 Rate Blood Pressure 217/98 180/79 (mmHg) O2 Sat by Pulse 99 Oximetry 09/29/17 09/29/17 09/29/17 10:44 11:00 11:55 Temperature 98.7 F 98.2 F Pulse Rate 60 64 56 Respiratory 12 20 24 Rate Blood Pressure 187/78 187/78 193/72 (mmHg) O2 Sat by Pulse 96 96 100 Oximetry 09/29/17 09/29/17 09/29/17 13:47 16:33 19:51 Temperature 97.6 F Pulse Rate 57 57 Respiratory 18 22 Rate Blood Pressure 150/36 197/60 (mmHg) O2 Sat by Pulse 98 99 Oximetry 09/29/17 09/29/17 09/29/17 19:55 20:00 20:40 Temperature Pulse Rate 64 Respiratory 16 Rate Blood Pressure (mmHg) O2 Sat by Pulse 99 Oximetry 09/29/17 09/30/17 09/30/17 23:15 00:44 03:30 Temperature 98.0 F 97.6 F Pulse Rate 59 66 Respiratory 16 16 Rate Blood Pressure 181/54 161/65 (mmHg) O2 Sat by Pulse 98 98 96 Oximetry Oxygen Devices in Use Now: None Neurology Exam: General: HEENT: Normocephalic/atraumatic, sclera anicteric, mucous membranes dry Neck: Supple, no bruits Chest: Clear to auscultation bilaterally Cardiovascular: Regular rate and rhythm without murmurs, rubs, gallops Abdomen: Soft, nontender/nondistended Extremities: No clubbing, cyanosis, or edema Neurological Findings: Awake, Alert, Oriented x3 Speech: fluent without dysarthria, repetition intact, recall intact Cranial Nerve: PEERL, EOM intact, VFF, no nystagmus, face symmetric bilaterally , facial sensation intact, hearing diminished bilaterally, palate elevates symmetrically, tongue midline Motor: 5/5 throughout, proximal and distal extremities x4 tone/bulk normal Sensation: intact to LT/PP bilaterally upper and lower extremities Deep Tendon Reflex: Down throughout, equivocal Babinski Finger to nose, rapid alternating movements intact without tremor Result Diagrams: 09/29/17 07:27 09/30/17 05:16 Assessment/Plan 87 year old, with history of HTN, Depression, Diabetes, some psychiatric issues in the distant past, present with acute onset of paroxysmal tremors which appear to be more non-physiologic. Now apparently resolved. The patient is very aware of these. He admits to major life stressors including a sick and sick dog, both of whom he loves and cares for greatly. He also admits to stopping all medication 3-4 days prior to admission including anti-depressant and HTN medications. --His tremors seem to have resolved. Workup is negative for any possible causes. My suspicion is that these may have been associated with acute withdraw from his medication, specifically depression med and/or the stressors in his life. Since restarting his medications, he already feels better. He notes that he will now be very compliant with his medications. --His Cr was elevated on admission, now improved. Myoclonus can develop with acute renal failure but these episodes do not sound myoclonic in nature. Doubt this is the cause --T3 was low in setting of T4. Unclear significance, should follow up with PCP. I do not suspect this is the cause of his abnormal movements. --Depression appears to be returning to baseline control. Improved today --HTN: Labile. Adjustment per primary team --BG: Adjustments per primary team. --He would like to go home if possible. If he remains tremor free, I see no reason why he cannot go home, assuming his blood pressures are better controlled and blood sugars are controlled. I defer to Primary team. He can follow up with Neurology as an outpatient. I will sign off for now, no further workup needed from Neurology standpoint. We remain available for any new or worsening symptoms. Thank you for the opportunity to participate in his care.
[2017-09-30] MEDS ORDERED: Aspirin EC TAB* 81 MG TAB.EC PO SCH (09:00)
[2017-09-30] MEDS ORDERED: Tiotropium CAP.INH* CAP.INH/18 MCG (USE ORDER SET !) INH SCH (09:00)
[2017-09-30] MEDS ORDERED: Spiriva Inhaler DEVICE* 1 EACH DEVICE INH ONE (09:00)
[2017-09-30] MEDS ORDERED: Clopidogrel TAB* 75 MG PO SCH (09:00)
[2017-09-30] MEDS ORDERED: Nicotine PATCH 7 MG/24 HR* PATCH TRANSDERM SCH (09:00)
[2017-09-30] MEDS: Insulin LISPRO* 1 UNITS UNIT SUBCUT SCH ×2 (09:57→13:22)
[2017-09-30] MEDS: buPROPion SR TAB.SR* 150 MG PO SCH (09:58)
[2017-09-30] MEDS ORDERED: Losartan TAB* 25 MG PO SCH (12:45)
--- NOTE | 2017-09-30 12:55 | PN ---
Subjective Date of Service: 09/30/17 Interval History: Patient seen and examined at bedside. Denies fever, chills, shortness of breath , chest discomfort, N/V/D. Pt states that the tremors have resolved and his speech is back to baseline. He states that he is feeling much better today. Discussed with Pt the importance of taking his medications. Tele: Sinus rhythm, rate 60-80's Family History: Unchanged from Admission Social History: Unchanged from Admission Past Medical History: Unchanged from Admission Objective Active Medications: Alprazolam (Xanax Tab*) 0.5 mg PO BID PRN Reason: ANXIETY Aspirin (Aspirin Ec Tab*) 81 mg PO DAILY [facility] Atorvastatin Calcium (Lipitor*) 5 mg PO BEDTIME [facility] Bupropion HCl (Wellbutrin Sr Tab*) 150 mg PO BID [facility] Clopidogrel Bisulfate (Plavix Tab*) 75 mg PO DAILY [facility] Dextrose (D50w Syringe 50 Ml*) 12.5 gm IV PUSH .FOR FS < 60 - SS PRN Reason: FS < 60 Heparin Sodium (Porcine) (Heparin Vial(*)) 5,000 units SUBCUT Q8HR [facility] Insulin Human Lispro (Humalog*) 0 - 5 units SUBCUT AC [facility] Metoprolol Tartrate (Lopressor Iv*) 5 mg IV Q4H PRN PRN Reason: Systolic Bp Greater Than: 190 Metoprolol Tartrate (Lopressor Tab*) 25 mg PO BID [facility] Nicotine (Nicotine Patch 7 Mg/24 Hr*) 1 patch TRANSDERM DAILY [facility] Non-Formulary Medication (Losartan/Hydrochlorothiazide [Losartan-Hctz 50-12.5 Mg Tab]) 1 tab PO DAILY [facility] Pharmacy Profile Note (Nicotine Patch Removal Note*) 1 note PATCH OFF 2100 [facility] Tamsulosin HCl (Flomax Cap*) 0.4 mg PO BEDTIME [facility] Tiotropium [place] (Spiriva Cap.Inh*) 1 cap INH DAILY [facility] Vital Signs - 8 hr 09/30/17 09/30/17 09/30/17 08:01 09:16 11:48 Temperature 98.3 F 98.5 F Pulse Rate 65 91 69 Respiratory 16 18 24 Rate Blood Pressure 155/70 178/76 (mmHg) O2 Sat by Pulse 97 100 96 Oximetry Oxygen Devices in Use Now: None Appearance: NAD, laying in bed Ears/Nose/Mouth/Throat: Mucous Membranes Moist Respiratory: Symmetrical Chest Expansion and Respiratory Effort, Clear to Auscultation Cardiovascular: NL Sounds; No Murmurs; No JVD, RRR Abdominal: NL Sounds; No Tenderness; No Distention Extremities: No Edema Skin: No Rash or Ulcers Neurological: Alert and Oriented x 3, NL Muscle Strength and Tone Lines/Tubes/Other Access: Clean, Dry and Intact Peripheral IV - site benign Nutrition: Taking PO's Result Diagrams: 09/29/17 07:27 09/30/17 05:16 Assess/Plan/Problems-Billing Mr. Gamez is an 87 year old, with past medical history of HTN, Depression, Diabetes and some psychiatric issues in the distant past who present with acute onset of paroxysmal tremors and difficulty with speech, with major life stressors including a sick and sick dog, both of whom he loves and cares for greatly. He also admits to stopping all medication 3-4 days prior to admission including anti-depressant and HTN medications. - Patient Problems (1) Difficulty with speech Code(s): R47.9 - UNSPECIFIED SPEECH DISTURBANCES SNOMED Code(s): 259989293 Comment: - Resolved - With associated tremors that have also resolved - EEG no signs of seizures - CT and MRI brain, negative - Carotid dopplers, bilateral carotid bulbs with < 50% stenosis - Echo, no significant findings - Neurology consult, input appreciated. Workup is negative for any possible causes. Neurology feels these are associated with acute withdraw from his medication, specifically antidepressants and/or the stressors in his life. (2) Elevated troponin Code(s): R74.8 - ABNORMAL LEVELS OF OTHER SERUM ENZYMES SNOMED Code(s): 039677290 Comment: - Denies chest pain - Troponin 0.05 and 0.04 - Suspect this is Pt's baseline (3) CKD (chronic kidney disease) stage 3, GFR 30-59 ml/min Code(s): N18.3 - CHRONIC KIDNEY DISEASE, STAGE 3 (MODERATE) SNOMED Code(s): 462739957 Comment: - Creatinine at baseline (4) Hypomagnesemia Code(s): E83.42 - HYPOMAGNESEMIA SNOMED Code(s): 015601200 Comment: - Received replacement yesterday - Will give more replacement today (5) HTN (hypertension) Code(s): I10 - ESSENTIAL (PRIMARY) HYPERTENSION SNOMED Code(s): 93938261 Comment: - SBP 150-200's - Continues to be hypertensive - Will resume home medications (6) HLD (hyperlipidemia) Code(s): E78.5 - HYPERLIPIDEMIA, UNSPECIFIED SNOMED Code(s): 77383056 Comment: - Continue atorvastatin (7) BPH (benign prostatic hyperplasia) Code(s): N40.0 - BENIGN PROSTATIC HYPERPLASIA WITHOUT LOWER URINRY TRACT SYMP SNOMED Code(s): 129389058 Comment: - With history of prostate ca - Continue flomax (8) CAD (coronary artery disease) Code(s): I25.10 - ATHSCL HEART DISEASE OF [place] CORONARY ARTERY W/O ANG PCTRS SNOMED Code(s): 29010638 Comment: - Asymptomatic - Continue ASA and plavix (9) COPD (chronic obstructive pulmonary disease) Code(s): J44.9 - CHRONIC OBSTRUCTIVE PULMONARY DISEASE, UNSPECIFIED SNOMED Code(s): 65252922 Comment: - No sign of acute exacerbation - Continue spiriva (10) Depression Code(s): F32.9 - MAJOR DEPRESSIVE DISORDER, SINGLE EPISODE, UNSPECIFIED SNOMED Code(s): 62668717 Comment: - Continue wellbutrin (11) Type 2 diabetes mellitus Comment: - Glucose 130-300's - Continue lispro SSI coverage with meals - Resume glimepiride at discharge (12) DVT prophylaxis Code(s): BCF0722 - SNOMED Code(s): 127185816 Comment: - SQ heparin and TEDs (13) Full code status Code(s): Z78.9 - OTHER SPECIFIED HEALTH STATUS SNOMED Code(s): 562398527 Status and Disposition: OBV. Discharge to home when medically stable, possible later today.
[2017-09-30] MEDS ORDERED: Magnesium Sulfate IV* 3 GM in NS 0.9% 100 ML* 100 ML IVPB ONE (12:56)
[2017-09-30] MEDS ORDERED: Metoprolol Tartrate TAB* 25 MG PO SCH (13:00)
[2017-09-30] MEDS ORDERED: Magnesium Sulfate 2 GM IV IVPB ONE (13:00)
[2017-09-30] MEDS ORDERED: Hydrochlorothiazide TAB* 25 MG PO SCH (14:00)
[2017-09-30] MEDS ORDERED: Magnesium Sulfate 1 GM IV* 1 GM/100 ML BAG IV ONE (14:00)
[2017-09-30 15:35] VITALS: BP 150/56
--- NOTE | 2017-10-01 20:30 | DS ---
CC: Dr. Shine; Dr. Jacinta Paul in [place], [place]; Dr. Pedro Benitez * DISCHARGE SUMMARY: DATE OF ADMISSION: 09/29/17 DATE OF DISCHARGE: 09/30/17 PRIMARY CARE PROVIDERS: Dr. Lucila Shine in [place] and Dr. Jacinta Paul in [place], [place] CONSULTATIONS WHILE IN THE HOSPITAL: Dr. Kofi Watson and Dr. Pedro Benitez , Neurology ATTENDING PROVIDER: Flavia Gaspar MD * (DICTATED BY MANISHA SMILEY NP) PRIMARY DIAGNOSES: 1. Difficulty with speech, resolved. 2. Tremors, resolved, suspected to be secondary to withdrawal from antidepressants. 3. Hypertension, improving. 4. Hypertroponinemia, suspect the patient is at baseline. 5. Hypomagnesium. SECONDARY DIAGNOSES: 1. Chronic kidney disease, stage 3. 2. Hyperlipidemia. 3. Benign prostatic hypertrophy. 4. Coronary artery disease. 5. Chronic obstructive pulmonary disease. 6. Depression. 7. Diabetes mellitus type 2. STUDIES WHILE IN THE HOSPITAL: 1. Chest x-ray from 09/29/17. Radiologist's impression: Cardiomegaly, no evidence for alveolar consolidation. 2. Brain CT from 09/29/17. Radiologist's impression: No acute intracranial process evident. Involutional change and stigmata of chronic small vessel ischemic disease. 3. Brain MRI from 09/29/17. Radiologist's impression: Cortical atrophy with chronic microvascular ischemic changes. No findings of acute ischemia. Chronic , small amount bilateral mastoid air cell effusions. 4. Bilateral carotid Doppler study from 09/29/17. Radiologist's impression: There is coarse atherosclerotic calcification at the bilateral carotid bulbs but the flow velocity and ratio correspond to less than 50% decreased stenosis. There is evidence of flow-limiting stenosis at the origin of the left subclavian artery including deranged left subclavian arterial waveforms and bi- directional flow recorded in the left vertebral artery. Please correspond to signs and symptoms of a subclavian steal syndrome, which can include visual disturbances, dizziness, and/or imbalance caused by or exacerbated during utilization of the upper extremity. 5. Transthoracic echocardiogram on 09/29/17. Card Writer Hand's conclusion: Global left ventricular wall motion and contractility within normal limits. There is normal left ventricular systolic function. The estimated ejection fraction is 55% to 60%. The right ventricular global systolic function is normal. There were late bubble seen in the left atrium, not consistent with PFO. There is evidence of aortic sclerosis without stenosis. There is mild mitral regurgitation, trace tricuspid regurgitation. Unable to estimate the right ventricular systolic pressure. 6. Electroencephalogram on 09/29/17. Neurologist's clinical impression: Abnormal EEG due to generalized slowing of the background rhythms consistent with diffuse cerebral dysfunction. There is no focal epileptiform features to this recording. DISCHARGE MEDICATIONS: Continued home medications: 1. Oxycodone 5/325 one tablet oral daily as needed for pain. 2. Spiriva 1 capsule inhalation daily. 3. Tamsulosin 0.4 mg oral daily at bedtime. 4. Nitroglycerin 0.4 mg sublingual every 5 minutes as needed for chest pain. 5. Neomycin-polymyxin 4 drops to ear 3 times daily as needed. 6. Metoprolol tartrate 25 mg oral twice daily. 7. Losartan/hydrochlorothiazide 50-12.5 one tablet oral daily. 8. Glimepiride 2 mg oral daily. 9. Fish oil 1 capsule oral daily. 10. Plavix 75 mg oral daily. 11. Cinnamon bark 500 mg oral daily. 12. Biotin 10,000 mcg oral daily. 13. Atorvastatin 5 mg oral daily at bedtime. 14. Aspirin 81 mg oral daily. 15. Xanax 0.5 mg oral twice daily as needed for anxiety. HISTORY OF PRESENT ILLNESS/HOSPITAL COURSE: Mr. Gamez is an 87-year-old male with past medical history significant for coronary artery disease, peripheral vascular disease, diabetes mellitus, prostate cancer, status post radiation, hypertension, COPD, pulmonary fibrosis, who had been in his usual state of health when he went to bed the night prior. The patient states that 5 or 6 days prior, he had been in [place], seen by his primary care provider, and then traveled to [place] where he spent the summer. The patient's went into the hospital 2 days prior to his presentation. He denied any fevers, chills, shortness of breath, nausea, vomiting, diarrhea. The patient states that he woke up at approximately 3 a.m. and noticed whole body tremors and was having trouble speaking, lasted for approximately an hour and half and he called EMS. The patient also stated he had not been taking his home medications accordingly since his had been in the hospital. He states when he takes his medications accordingly, his diabetes and blood pressure are well controlled. When EMS arrived, the patient was found to have a stuttering speech during his tremors. His blood pressure was 190/110. He was brought to the emergency room for further evaluation. While in the emergency room, the patient continued to be hypertensive with systolic blood pressures in the 200s. He had a brain CT showing no acute findings. Chest x- ray showing cardiomegaly, no acute findings. EKG without significant findings. He had an EEG without signs of seizure activity and the patient had a telestroke consult, was deemed to not be a tPA candidate due to his symptoms being vague and no exact window and the hospitalists were asked to evaluate the patient for admission. While in the hospital, the patient was seen in consultation by Dr. Watson. The patient had a brain MRI with no acute findings of a CVA. He had a transthoracic echocardiogram showing no acute findings. He had carotid Doppler showing no significant findings, but he does have bilateral carotid bulb stenosis less than 50%. His speech had improved during his stay. He was then seen in consultation by Dr. Benitez, who felt that the patient's symptoms which had resolved by the morning were likely associated with acute withdrawal from his medications, specifically his antidepressants and/or stress in his life. The patient was noted to have hypomagnesium and received replacement. He had an elevated troponin that appeared to be at his baseline, no further workup was completed. It was felt that he was ready for discharge today. Mr. Gamez is stable for discharge home today. Vital signs are as follows: Temperature 98.7, heart rate 50, respiratory rate 16, O2 sat 98% on room air, blood pressure 150/56. DISCHARGE PLAN: Mr. Gamez will be discharged to home. ACTIVITY: As tolerated. DIET: He should be on a heart-healthy diet. He will be resumed on all of his other usual medications. At this point, his difficulty with speech and tremors have resolved spontaneously after being restarted on his home medications. Please continue to encourage the patient to take his medications. At his followup appointment if at all possible, please try to consolidate any twice daily medications down to once daily as I feel he would likely be more compliant with taking them. The patient has been asked to return to the emergency room for any chest pain, shortness of breath, or signs of a stroke. He has a followup appointment with his primary care provider here in [place], Dr. Lucila Shine, on 10/09/17 at 12 p.m. This is a summarized report of a complex medical history and hospital stay. For further details, please see the entire medical record. TIME SPENT: Time for this discharge was approximately 50 minutes, greater than half of that was spent with the patient discussing discharge plans and instructions. CONDITION ON DISCHARGE: Stable. MANISHA LISA, KAREN [id number]/[facility] #: [id number] JULIO
== END 2017-09-30 17:15 | disposition home or self-care (01) ==
LOC: ED 07:03 → MEDTELE 09:34
PROVIDERS: ADMIT Internal Medicine; ATTEND Internal Medicine
DX: R47.89 Other speech disturbances (principal); R25.1 Tremor, unspecified; I10 Essential (primary) hypertension; R79.89 Other specified abnormal findings of blood chemistry; R74.8 Abnormal levels of other serum enzymes; E83.42 Hypomagnesemia; I12.9 Hypertensive chronic kidney disease with stage 1 through stage 4 chronic kidney disease, or unspecified chronic kidney disease; E11.22 Type 2 diabetes mellitus with diabetic chronic kidney disease; N18.3 Chronic kidney disease, stage 3 (moderate); E78.5 Hyperlipidemia, unspecified; N40.1 Benign prostatic hyperplasia with lower urinary tract symptoms; I25.10 Atherosclerotic heart disease of native coronary artery without angina pectoris; J44.9 Chronic obstructive pulmonary disease, unspecified; F32.9 Major depressive disorder, single episode, unspecified; Z79.82 Long term (current) use of aspirin; Z95.9 Presence of cardiac and vascular implant and graft, unspecified
CPT/HCPCS: 36415; 70450; 70551; 71045; 80048; 80053; 80061; 80307; 80320; 81003; 81015; 82140; 82550; 83516; 83605; 83735; 84439; 84443; 84479; 84484; 85025; 85610; 85652; 85730; 86038; 86140; 86200; 86850; 86900; 86901; 87040; 87086; 93005; 93306; 93880; 94640; 95819; 96374; 96375; 99285; A9270-GY; G0378; G0480; J1644; J3475; J3490

== ENCOUNTER 2017-12-09 22:08 | Emergency (ER) | payer MEDICARE ==
--- OUTSIDE RECORDS SUMMARY | 2017-12-09 22:26 | XMS REPORT ---
:1930 External Reference #:[id number] Author Organization [facility] Address [address] [place] [address] Phone [phone] Care Team Providers Name Role Phone Lucila Shine M.D. Primary Care Physician Unavailable Payers Type Date Identification Numbers Payment Provider Subscriber Medicare Primary Effective: Policy Number: Medicare - NGS Ed Harris 1995 [id number] Franco PayID: [id number] [address] [place] [address] [employer] Policy Number: [id number] Replaced By [facility] Ed Gamez PayID: [id number] [address] [place] [address] Problems Date Description Provider Status Onset: Hearing loss Active Onset: Pulmonary emphysema Active Onset: Thyroid dysfunction Active Onset: History of malignant neoplasm of Active bladder Onset: Essential hypertension Active Onset: Depressive disorder Active Onset: Type 2 diabetes mellitus Active Onset: Malignant melanoma Active Onset: 01/19/2016 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 Active Onset: 01/19/2016 Presence of intraocular lens Michael Dia M.D. 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 ETOH Use Denies alcohol use Smoking Patient is a former smoker Recreational Drug Use Denies Drug Use Daily Caffeine Consumes on average 1 cup of regular coffee per day Allergies, Adverse Reactions, Alerts Date Description Reaction Status Severity Comments 01/18/2016 NKDA active Medications Medication Date Status Form Strength Qnty SIG Indications Ordering Provider Atorvastatin Active Tablets 40mg Unknown Calcium 000 Losartan Active Tablets 100mg Unknown Potassium 000 Metoprolol Active Tablets 25mg Unknown Tartrate [address] 81mg Unknown 000 Glimepiride Active Tablets 1mg Unknown 000 Tamsulosin HCL Active Capsules 0.4mg Unknown 000 Clopidogrel Active Tablets 75mg Unknown Bisulfate 000 Spiriva Active Capsules 18mcg Unknown Handihaler 000 Cinnamon Bark Active Powder Unknown 000 Co-Enzyme Q10 Active Capsules 100mg Unknown 000 Fish Oil Active Capsules 1000mg 1 by Unknown 000 mouth every day Amlodipine Hx Tablets 10mg Unknown Besylate 000 - 017 Nicotine Hx Patches 21mg/24HR Unknown 000 - 24HR 018 Nitroglycerin Hx 0.4mg SL Unknown 000 - 018 Alprazolam Hx Tablets 0.25mg Unknown 000 - 018 Bupropion HCL ER Hx Tablets ER 150mg Unknown (SR) 000 - 12HR 018 Darifenacin Hx Tablets ER 7.5mg Unknown Hydrobromide ER 000 - 24HR 018 Lutein Hx Capsules 20mg Michael Dia, Nisa 018 Results Description No Information Procedures Date CPT Code Description Status 12/16/2016 72900 Scanning Computerized Opthalmic Diagnostic Posterior Completed Seg Retina 12/16/2016 89187 Est Patient Comprehensive Exam Completed 01/19/2016 45977 Scanning Computerized Opthalmic Diagnostic Posterior Completed Seg Retina 01/19/2016 84454 Est Patient Comprehensive Exam Completed 11/18/2013 19543 Scanning Computerized Opthalmic Diagnostic Posterior Completed Seg Retina 11/18/2013 62473 Est Patient Comprehensive Exam Completed 03/11/2013 63589 Fundus Photography With Interpretation And Report Completed 03/11/2013 33868 Determination Of Refractive State Completed 03/11/2013 95045 Est Patient Intermediate Exam Completed 11/12/2012 10006 Est Patient Comprehensive Exam Completed 11/12/2012 68206 Scanning Computerized Opthalmic Diagnostic Posterior Completed Seg Retina 03/10/2012 57659 Scanning Computerized Opthalmic Diagnostic Posterior Completed Seg Retina 03/10/2012 94789 Determination Of Refractive State Completed 03/10/2012 13381 Est Patient Comprehensive Exam Completed 02/27/2012 92608 Patient No Show For Appt Completed 02/26/2011 81835 Est Patient Comprehensive Exam Completed 11/27/2010 07603 Est Patient Intermediate Exam Completed 02/22/2010 99779 Est Patient Comprehensive Exam Completed 02/22/2010 41849 Determination Of Refractive State Completed 03/03/2009 76193 Determination Of Refractive State Completed 03/03/2009 52737 Est Patient Comprehensive Exam Completed 03/07/2008 28639 Determination Of Refractive State Completed 03/07/2008 18998 Est Patient Comprehensive Exam Completed 09/18/2006 35641 Determination Of Refractive State Completed 09/18/2006 43305 Est Patient Comprehensive Exam Completed 09/17/2005 60865 Determination Of Refractive State Completed 09/17/2005 07287 Est Patient Intermediate Exam Completed 03/07/2005 13443 Est Patient Comprehensive Exam Completed 11/07/2004 50951 Extracapsular Cataract Extraction W/Intraocular Lens Completed 11/01/2004 87135 Ophthalmic Biometry Completed 10/31/2004 69624 Extracapsular Cataract Extraction W/Intraocular Lens Completed 10/23/2004 50036 Unlisted Procedure, Ophthalmological Completed 10/23/2004 02468 Ophthalmic Biometry Completed 10/12/2004 62981 Fundus Photography With Interpretation And Report Completed 10/12/2004 69828 Est Patient Comprehensive Exam Completed 10/12/2004 500 Systane Eye Drops 15 ML Completed Encounters Type Date Location Provider CPT E/M Dx Office Visit 10/23/2004 12:30p Michael Dia MD, Michael Dia, [id number] 366.14 gualberto Paula 366.16 Plan of Care 12/02/2017 - Michael Dia M.D.H35.3124 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 If you are a smoker, we strongly recommend that you quit.If you are not a smoker , we strongly recommend that you do not start. You have Macular Degeneration. Check your Amsler Grid, with each eye separately, and take the AREDS II formula vitamins. If you notice any changes in your vision, please call the office and schedule an appointment to see any of the doctors here.Follow up:1 Year Follow Up Diagnostic Refraction OCT MAC You can expect to have your eyes dilated at your next visit. If Dr. Dia orders any additional testing, it may require extra time. We recommend that youbring sunglasses, as dilation drops often make you light sensitive until they wear off. We always recommend you bring someone to drive you home if you are uncomfortable driving with your eyes dilated. If you have any questions before your next visit, feel free to call our office at [phone].H41.5904 Nexdtve age-related mclr degn, right eye, early dry stageComments:You have Macular Degeneration. Check your Amsler Grid, with each eye separately, and take the AREDS II formula vitamins. If you notice any changes in your vision, please call the office and schedule anappointment to see any of the doctors here.E11.9 Type 2 diabetes mellitus without complicationsComments:You have diabetes. I do not detect any changes in both of your retinas from diabetes at this time. Proper control of your diabetes is important for the health of your eyes. Changes in your eyes from diabetes can happen without symptoms, so it is important that you have your eyes examined. Dr. Dia has sent a report to your primary care doctor, letting them know there is no damage from the Diabetes in your eyes.Z96.1 Presence of intraocular lensComments:The artificial lens implants in both eyes appear to be stable at this time.
--- NOTE | 2017-12-10 00:20 | ED ---
Complex/Multi-Sys Presentation - HPI Summary HPI Summary: This is rodgere Martell Gongora documenting for attending Dr. Patito Eugene MD. A 87 y/o male CISCO presents to ED c/o pain from the chest up through his head including neck. Currently, the patient has pain in his neck and throat, however has no chest pain, "It comes and goes like ingestion". According to the patient , the pain is horrible and doesn't know what happened. Last (6 days ago , 12/04/2017), the patient got cold and got out of bed to grab a blanket. In an attempt to grab the blanket, he accidentally slipped ("My feet when under") and fell down on his left side. He is not sure why he fell. He noted that the fall affected his left ear slightly. Post-accident, he felt fine was able to get up, get the blanket and went to sleep, however, at 0600 the pain started to really hurt. He went to his Chiropractor 12/05/2017, in which he received a "work-over". On 12/06/2017, the pain did not subside and he could not go to sleep. His doctor instructed to put ice and heat packs, however still the pain worsened. He decided to come in to the ED today because of the constant pain. In the ED room, the patient has a pulse of 62, O2 saturation of 98% and blood pressure of 181/78. He noted that the pain in the back of his neck has not been increasing but constant. When he puts the ice/cold packs on the areas of pain, it would go away momentarily. Pt denies any numbness or tingling, however has vision changes. 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 SHx of lives with in his own home. PMHx of stents (3), prostate surgery, AAA, surgery on leg. FHx of DC (father at 70 y/o and heavy smoker). Currently on blood thinners. - History Of Current Complaint Chief Complaint: EDGeneral Time Seen by Provider: 12/09/17 23:09 Hx Obtained From: Patient Onset/Duration: Sudden Onset, Still Present Timing: Constant - Neck pain, Intermittent, Lasting: - Chest pain Severity Currently: Moderate Severity Initially: Moderate Location: Pain At: - posterior neck Character: Dull Aggravating Factor(s): NOTHING Alleviating Factor(s): HEAT/ICE PACKS TEMPORARILY Associated Signs And Symptoms: Positive: Chest Pain - resolved, "indigestion", Other - vision changes resolved - Allergies/Home Medications Allergies/Adverse Reactions: Allergies Allergy/AdvReac Type Severity Reaction Status Date / Time prednisone Allergy Intermediate Altered Verified 09/29/17 09:44 Mental Status zolpidem Allergy Unknown Verified 09/29/17 11:12 Reaction Details PMH/Surg Hx/FS Hx/Imm Hx Previously Healthy: No Endocrine/Hematology History: Reports: Hx Diabetes Cardiovascular History: Reports: Hx Aneurysm - AAA, Hx Angina, Hx Coronary Artery Disease - STENT, Hx Hypertension, Other Cardiovascular Problems/ Disorders - CAD, IDDM II Denies: Hx Congestive Heart Failure, Hx Pacemaker/ICD Respiratory History: Reports: Hx Chronic Obstructive Pulmonary Disease (COPD) History: Denies: Hx Dialysis, Hx Renal Disease Sensory History: Reports: Hx Contacts or Glasses, Hx Hearing Aid, Hx Hearing Problem Opthamlomology History: Reports: Hx Contacts or Glasses Psychiatric History: Denies: Hx Panic Disorder - Cancer History Cancer Type, Location and Year: prostate - Surgical History Surgery Procedure, Year, and Place: STENTS IN HEART, STENTS IN LEG, AAA REPAIR WITH STENT, INJECTIONS IN EYES, TONSILS, GALLBLADDER, PROSTATE - Immunization History Date of Tetanus Vaccine: UTD Date of Influenza Vaccine: UTD Infectious Disease History: No Infectious Disease History: Denies: Traveled Outside the [place] in Last 30 Days - Family History Known Family History: Positive: Cardiac Disease - in father, Seizure Disorder - in father - Social History Lives: With Family Alcohol Use: Rare Substance Use Type: Reports: None Hx Tobacco Use: Yes Smoking Status (MU): Current Every Day Smoker Type: Cigarettes Amount Used/How Often: 12- 14 cigarettes a day Length of Time of Smoking/Using Tobacco: 70 years Have You Smoked in the Last Year: Yes Review of Systems Negative: Fever Positive: Chest Pain - resolved , like indigestion Respiratory: Negative Gastrointestinal: Negative Positive: Other - POSITIVE: neck pain Skin: Negative Neurological: Other - NEGATIVE: numbess or tingling Psychological: Normal All Other Systems Reviewed And Are Negative: Yes Physical Exam - Summary Physical Exam Summary: Appearance: Well-appearing, moderate pain distress, well-nourished Skin: Warm, color reflects adequate perfusion, dry, scattered ecchymoses Head: Normal Head/Face inspection, atraumatic Eyes: Conjunctiva clear ENT: Normal inspection Neck: Supple, no nodes, no JVD, tender posterior spines, decreased side to side movement Respiratory: Lungs clear, normal breath sounds, no respiratory distress Cardio: RRR, No murmur, pulses normal, brisk capillary refill Abdomen: Soft, nontender Bowel sounds: Present Musculoskeletal: Strength Intact/ROM intact, no calf tenderness, 2+ edema right foot, 1+ left foot, no rib tenderness, pelvis stable, Psychological: Normal Neuro: Alert, muscle tone normal, no focal deficit Triage Information Reviewed: Yes Vital Signs On Initial Exam: Initial Vitals Temp Pulse Resp BP Pulse Ox 98.3 F 66 16 162/68 99 12/09/17 22:18 12/09/17 22:18 12/09/17 22:18 12/09/17 22:18 12/09/17 22:18 Vital Signs Reviewed: Yes Diagnostics - Vital Signs Vital Signs Temp Pulse Resp BP Pulse Ox 12/09/17 22:25 63 199/80 98 12/09/17 22:24 63 97 12/09/17 22:18 98.3 F 66 16 162/68 99 - Laboratory Lab Statement: Any lab studies that have been ordered have been reviewed, and results considered in the medical decision making process. - CT CERVICAL SPINE CT CT Interpretation Completed By: Radiologist - 1. No evidence of an acute fracture involving the cervical verteb ral bodies or posterior elements. 2. Slight flexion deformity centered at the C5-C6 disc space secondary to degenerative changes of the disc space and facet joints. 3. Slight anterolisthesis of C4 on C5 secondary to degenerative changes of the of the facet joints and disc space. 4. Prominent asymmetric spur arising from the C6 vertebral body extending superiorly in the subarticular space on the left side. This causes asymmetric narrowing of the spinal canal. This causes moderate asymmetric narrowing of the spinal canal. 5. Multilevel degenerative cervical disc disease and facet disease. No significant central canal stenosis. Variable degrees of neural foraminal narrowing secondary to degenerative changes of the uncovertebral joints and facet joints. ED PHYSICIAN REVIEWED THIS RADIOLOGY REPORT. Re-Evaluation - Re-Evaluation First Eval Re-Evaluation Time: 02:30 Change: Unchanged Comment: Pt is frustrated waiting for CT result, wants to go home. Denies chest pain. Ambulatory to the BR unassisted. Complex Multi-Symp Course/Dx Course Of Treatment: 87 yo M who lives independently with his , c/o neck pain s/p fall several days ago, and s/p chiropractor manipulation on 12/05/17. CT Cervical spine shows multilevel degenerative changes but no fracture. Pt is dc'd home. - Diagnoses Provider Diagnoses: Cervical strain, acute Discharge - Sign-Out/Discharge Documenting (check all that apply): Patient Departure - home - Discharge Plan Condition: Stable Disposition: HOME Patient Education Materials: Cervical Strain (ED) Referrals: Lucila Shine MD [Medical Doctor] - 2 Days Additional Instructions: The CT scan of your cervical spine showed alot of arthritis, but it did not show a fracture. You may take acetaminophen for pain. You were given acetaminophen 650mg orally at 0250am. Return to the ER if you have new or worsening symptoms. - Billing Disposition and Condition Condition: STABLE Disposition: Home
[2017-12-10] MEDS ORDERED: Acetaminophen TAB* 325 MG PO ONE (02:37)
[2017-12-10 03:01] VITALS: BP 225/85
--- NOTE | 2017-12-10 08:02 | RAD ---
HISTORY: chiropracter adjusted his neck,can't move his neck COMPARISONS: None TECHNIQUE: Multiple contiguous axial CT scans were obtained of the cervical spine without intravenous contrast, with coronal and sagittal multiplanar reformations. FINDINGS: BRAIN: The visualized brain is unremarkable CENTRAL CANAL: Evaluation of the central canal is limited on CT technique; however, there is no obvious canalicular mass or epidural hemorrhage. ALIGNMENT: There is straightening of the cervical lordosis. There is trace anterolisthesis of C4 on C5. VERTEBRAL BODIES: There is diffuse osteopenia. Is multilevel bridging anterolateral marginal osteophyte formation. There is fusion of C6 and C7. 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 JOINTS: There is diffuse facet and uncovertebral osteoarthritis. There is fusion of the facet joints of C2 and C3. There is advanced osteoarthritis of the atlantoaxial articulation. There is minimal pannus formation at the atlantoaxial articulation with associated calcification. MUSCULATURE: Unremarkable INTERVERTEBRAL DISCS: There is diffuse loss of intervertebral disc height. AXIAL IMAGES: C2-C3: There is no osseous neural foraminal narrowing or central canal stenosis. C3-C4: There is exuberant bilateral facet hypertrophy. There is uncovertebral hypertrophy. There is severe bilateral neural foraminal narrowing. There is no osseous central canal stenosis. C4-C5: There is bilateral uncovertebral and facet hypertrophy. There is severe bilateral neuroforaminal narrowing. There is no osseous central canal stenosis. C5-C6: There is a left lateral recess posterior osteophyte versus calcified disc protrusion. There is bilateral vertebral and facet hypertrophy. There is severe left and moderate right neural foraminal narrowing. There is partial effacement of the left lateral recess. C6-C7: There is bilateral uncovertebral and facet hypertrophy. There is mild bilateral neural foraminal narrowing. There is no significant central canal stenosis. C7-T1: There is mild bilateral neuroforaminal narrowing. There is no osseous central canal stenosis. SOFT TISSUES: The prevertebral fat stripe is preserved. There is calcification of the carotid bifurcations and of the vertebral arteries and visualized thoracic aorta. OTHER: None. IMPRESSION: OSTEOPENIA. DEGENERATIVE DISC DISEASE AND OSTEOARTHRITIS. THERE IS PARTIAL EFFACEMENT OF THE LEFT LATERAL RECESS AT C5-C6. THERE IS MULTILEVEL NEURAL FORAMINAL NARROWING DESCRIBED ABOVE. NO ACUTE OSSEOUS INJURY TO THE CERVICAL SPINE. ATHEROSCLEROSIS. R0
== END 2017-12-10 03:00 | disposition home or self-care (01) ==
LOC: ED 22:08
DX: S16.1XXA Strain of muscle, fascia and tendon at neck level, initial encounter (principal); X58.XXXA Exposure to other specified factors, initial encounter; Y93.9 Activity, unspecified; Y92.9 Unspecified place or not applicable; M50.30 Other cervical disc degeneration, unspecified cervical region; M85.88 Other specified disorders of bone density and structure, other site; E11.9 Type 2 diabetes mellitus without complications; I25.119 Atherosclerotic heart disease of native coronary artery with unspecified angina pectoris; I10 Essential (primary) hypertension; Z95.5 Presence of coronary angioplasty implant and graft; J44.9 Chronic obstructive pulmonary disease, unspecified; Z85.46 Personal history of malignant neoplasm of prostate; Z90.49 Acquired absence of other specified parts of digestive tract; Z88.8 Allergy status to other drugs, medicaments and biological substances; Z82.49 Family history of ischemic heart disease and other diseases of the circulatory system; Z82.0 Family history of epilepsy and other diseases of the nervous system; F17.210 Nicotine dependence, cigarettes, uncomplicated
CPT/HCPCS: 72125; 99283; A9270-GY

== ENCOUNTER 2018-04-24 13:49 | Inpatient (IN) | payer MEDICARE ==
[2018-04-24 15:21] LABS: ABS Basophils 0.1 10^3/ul (0-0.2); ABS Eosinophils 0.1 10^3/ul (0-0.6); ABS Lymphocytes 0.6 10^3/ul (1.0-4.8); ABS Monocytes 0.6 10^3/ul (0-0.8); ABS Neutrophils 7.5 10^3/ul (1.5-7.7); ABS Nucleated RBC 0 10^3/ul; Eosinophil % 1.5 %; Hematocrit 30 % (42-52); Lymphocyte % 7.2 %; Mean Corpuscular HGB Conc 34 g/dl (31-36); Mean Corpuscular Hemoglobin 33 pg (27-31); Mean Corpuscular Volume 97 fL (80-94); Nucleated Red Blood Cells % 0; Platelet Count 148 10^3/ul (150-450); Red Blood Count 3.06 10^6/ul (4.00-5.40); Red Cell Distribution Width 16 % (10.5-15); White Blood Count 8.9 10^3/ul (3.5-10.8)
[2018-04-24 15:31] LABS: INR 0.95 (0.77-1.02)
[2018-04-24 15:42] LABS: EGFR Non-African American 11.9 (>60)
[2018-04-24] MEDS ORDERED: Acetaminophen TAB* 325 MG PO PRN (16:44)
[2018-04-24] MEDS ORDERED: Nitroglycerin TAB 0.4 MG* 0.4 MG TAB SL PRN (17:07)
[2018-04-24] MEDS ORDERED: Dextrose 50% Syringe 50 ML* 25 GM/50 ML SYRINGE IV PUSH PRN (18:52)
[2018-04-24] MEDS: Furosemide IV* 10 MG/ML 10 ML VIAL (100 MG) IV SCH (20:26)
[2018-04-24] MEDS: Metoprolol Succinate XL TAB* 25 MG PO SCH (20:27)
[2018-04-24] MEDS: Tamsulosin CAP* 0.4 MG PO SCH (20:27)
[2018-04-24] MEDS: Insulin LISPRO* 1 UNITS UNIT SUBCUT SCH (21:55)
--- NOTE | 2018-04-25 00:10 | HP ---
CC: Dr. Shine. HISTORY AND PHYSICAL: DATE OF ADMISSION: 04/24/18 TIME OF ADMISSION: 05:15 p.m. CHIEF COMPLAINT: "I could not breathe well." HISTORY OF PRESENT ILLNESS: This is an 87-year-old man with a history of coronary artery disease, chronic diastolic heart failure and chronic kidney disease, who presents with shortness of breath that he states started a month ago, but has been ongoing for the last 3 years. Then, he notes that few days ago that his breathing got worse. He went to see his primary care physician, who's office notes we have and she ordered a chest x-ray for shortness of breath , some labs, which showed stable renal dysfunction, elevated BNP, and she urged him to go to the emergency department. She also started him on torsemide at that time. He declined coming to the ED at that time. However, at home, his breathing continued to be worst and so he decided to call the EMS this morning. He has been taking the torsemide, but actually noticed that his urine output has not been increasing and may be even decreasing. He notes weight loss, he thinks he lost about 45 pounds in 1 month. His family friend is here with him. She called the EMS today and she agrees that he has actually been losing weight. He states he has had no appetite, although he did eat soups and stews over the past 2 days. His friend also reports recent hallucinations. Dr. Shine's note also comments on this and she ordered MRI. He denies having any recent chest pain. He denies fevers. He does think he has had some dysuria. He has had a cough, productive of phlegm. PAST MEDICAL HISTORY: Coronary artery disease, chronic kidney disease, BPH, COPD, type 2 diabetes, hypertension, diastolic heart failure. HOME MEDICATIONS: 1. Amlodipine 5 mg daily. 2. Glimepiride 1 mg daily. 3. Torsemide 10 mg daily. 4. Aspirin 81 mg daily. 5. Atorvastatin 10 mg daily. 6. Wellbutrin 150 mg daily. 7. Plavix 75 mg daily. 8. Metoprolol XL 25 mg b.i.d. 9. Nitroglycerin 0.5 sublingual q.5 p.r.n. chest pain. 10. Flomax 0.4 p.o. q.h.s. 11. Spiriva 1 cap inhaled daily. SOCIAL HISTORY: He smokes cigarettes daily less than a half a pack. He does not drink alcohol. His surrogate decision maker would be his , Nellie if he were unable to make decisions. Nellie's phone is [phone]. REVIEW OF SYSTEMS: As per the HPI, remainder of review of systems is negative PHYSICAL EXAMINATION GENERAL: Alert, elderly man, in no distress. VITAL SIGNS: Temperature 97.6, heart rate 69, respiratory rate 25, pulse ox 100 % on 2 liters, no hypoxia is documented, blood pressure 154/79. HEENT: Eyes are injected. Pupils are equal round and reactive to light. NECK: JVP is noted to approximately 10 cm of water. LUNGS: Have decreased breath sounds at the bases, but no crackles. CHEST: He is in a regular rate and rhythm. I hear no murmurs. ABDOMEN: Obese. He has an incision that is from an AAA repair and stent. He has no guarding or rebound. EXTREMITIES: He has right lower extremity edema greater than left lower extremity edema. He has old indentations on his legs. His legs are nontender to palpation. His pulses are 2+ bilaterally. He has edema bilaterally. His strength is 5/5 throughout. DIAGNOSTIC STUDIES/LAB DATA: Labs: White blood cell is 8.9, hemoglobin 10.0, platelets 148, INR 0.95. Sodium 138, potassium 3.9, chloride 108, BUN 48, creatinine 4.67, glucose 197, lactic 1.1. Troponin 0.08. Imaging: Chest x-ray shows pulmonary vascular congestion. An EKG is pending. He had a venous Doppler study done on 04/22/18, which showed no evidence of DVT on the right leg. EKG: He is in normal sinus rhythm with a normal axis. He has a widened QRS at 157 with the right bundle-branch morphology. He has no Q waves. He has T wave inversions across the precordium. ASSESSMENT AND PLAN: This is an 87-year-old man just with diastolic heart failure and chronic kidney disease, who presents to the emergency department with shortness of breath. 1. Volume overload, which is likely multifactorial and related to decompensated heart failure and decompensated renal failure. He reports eating stew and soup lately, which I suspect were exceptionally salty. He has been on torsemide for 3 days at home without much improvement. I am going to start him on high dose IV Lasix to overcome his significant renal dysfunction. He was not noted to be hypoxic on admission, but he complains of shortness of breath. Pneumonia is also on the differential for his shortness of breath; however, given his worsening renal function and history of salty foods, I suspect he needs diuresis. I am going to monitor strict In's and O's, check daily weights , and attempt to diurese him. 2. Osvpp-bc-tasmhmw kidney disease. I have his results from [facility] and it actually shows that this creatinine today of 4.67 is not far from his baseline over the past month. On 03/25/18, his creatinine was 4.3, on 03/20/18, it was 4.6, and on 03/17/18, it was 4.5. This was a sudden change since October when it was 2. However, I am not sure if that started to occur between October and February. The etiology of his kidney disease is not clear to me at this time. I am checking an urinalysis for protein. He has not taken any NSAIDs or other nephrotoxic medications. He certainly needs a renewable energy project manager and a strict monitoring of his urine output in case he is obstructing or going into oliguric renal failure. 3. Coronary artery disease. He does have 2 stents. He has not had any chest pain during these episodes. His EKG is unchanged from a prior EKG with a right bundle-branch block, although I do note that his lateral T wave inversions are more diffuse now, but I suspect his elevated troponin is more so related to demand in the setting of volume as supposed to a type 1 myocardial infarction. I will continue to trend his troponins. Continue ASA, plavix, statin. 4. Type II Diabetes. There are no diabetic medications on his med list. Will order fingersticks. 5. BPH, continue flomax. 6. DVT ppx. heparin sc. [id number]/[facility] #: [id number] MTDD
[2018-04-25 07:03] LABS: ABS Basophils 0.1 10^3/ul (0-0.2); ABS Eosinophils 0.2 10^3/ul (0-0.6); ABS Lymphocytes 0.8 10^3/ul (1.0-4.8); ABS Monocytes 0.7 10^3/ul (0-0.8); ABS Neutrophils 6.3 10^3/ul (1.5-7.7); ABS Nucleated RBC 0 10^3/ul; Eosinophil % 2.6 %; Hematocrit 28 % (42-52); Hemoglobin 9.7 g/dl (14.0-18.0); Lymphocyte % 10.1 %; Mean Corpuscular HGB Conc 35 g/dl (31-36); Mean Corpuscular Hemoglobin 34 pg (27-31); Mean Corpuscular Volume 97 fL (80-94); Mean Platelet Volume 8.2 fL (7.4-10.4); Nucleated Red Blood Cells % 0; Platelet Count 139 10^3/ul (150-450); Red Cell Distribution Width 16 % (10.5-15); White Blood Count 8.2 10^3/ul (3.5-10.8)
[2018-04-25 07:06] LABS: INR 0.94 (0.77-1.02)
[2018-04-25 07:20] LABS: EGFR Non-African American 11.7 (>60)
[2018-04-25] MEDS: Tiotropium CAP.INH* CAP.INH/18 MCG (USE ORDER SET !) INH SCH (07:56)
[2018-04-25] MEDS: Insulin LISPRO* 1 UNITS UNIT SUBCUT SCH ×4 (08:34→21:06)
[2018-04-25] MEDS ORDERED: Spiriva Inhaler DEVICE* 1 EACH DEVICE INH ONE (09:00)
[2018-04-25] MEDS: Metoprolol Succinate XL TAB* 25 MG PO SCH ×2 (09:50→21:06)
[2018-04-25] MEDS: Aspirin EC TAB* 81 MG TAB.EC PO SCH (09:50)
[2018-04-25] MEDS: Atorvastatin* 10 MG TAB PO SCH (09:50)
[2018-04-25] MEDS: Clopidogrel TAB* 75 MG PO SCH (09:51)
[2018-04-25] MEDS: Furosemide IV* 10 MG/ML VIAL (40 MG) IV SCH ×2 (09:51→17:34)
[2018-04-25] MEDS: Furosemide IV* 10 MG/ML 10 ML VIAL (100 MG) IV SCH (09:56)
[2018-04-25] MEDS ORDERED: Enoxaparin(*) 30 MG/0.3 ML SYR SUBCUT SCH (10:00)
[2018-04-25] MEDS ORDERED: Enoxaparin(*) 30 MG/0.3 ML SYR ONE (10:16)
[2018-04-25] MEDS: BuPROPion XL* 150 MG TAB.XL PO SCH (10:32)
--- NOTE | 2018-04-25 14:40 | PN ---
Subjective Date of Service: 04/25/18 Interval History: Pt seen and examined. Meds and labs reviewed. Mentions that he is not on O2 at home but currently at 4L of O2. CC: Improved SOB ROS: Denied [place]/dizziness, F/C, N/V, CP, increased cough, sputum production, abd pain, diarrhea, constipation, dysuria, myalgias, arthralgias, throat pain, and new skin lesions. The rest of the 14 point ROS are unremarkable. PHYSICAL EXAM: GEN APPEARANCE: Awake, not in acute distress HEENT: NC/AT, PERRLA, moist oral mucosa, (-) throat erythema NECK: Soft, supple, (-) cervical LAD, (-)JVD HEART: S1S2 WNL, RRR, No MRG CHEST: CTA, BL, GAE, No W/R/R ABD: Soft, ND/NT, NABS 4x Q EXT: No C/C/BLLE edema, 2+ on R; 1+ on left SKIN: Warm to touch PSYCH: No active psychosis, hallucinations, depression, SI/HI Objective Active Medications: Acetaminophen (Tylenol Tab*) 650 mg PO Q4H PRN PRN Reason: FEVER/PAIN Aspirin (Aspirin Ec Tab*) 81 mg PO DAILY [facility] Last Admin: 04/25/18 09:50 Dose: 81 mg Atorvastatin Calcium (Lipitor*) 10 mg PO DAILY [facility] Last Admin: 04/25/18 09:50 Dose: 10 mg Bupropion HCl (Wellbutrin Xl *) 150 mg PO DAILY [facility]; Protocol Last Admin: 04/25/18 10:32 Dose: 150 mg Clopidogrel Bisulfate (Plavix Tab*) 75 mg PO DAILY [facility] Last Admin: 04/25/18 09:51 Dose: 75 mg Dextrose (D50w Syringe 50 Ml*) 12.5 gm IV PUSH .FOR FS < 60 - SS PRN PRN Reason: FS < 60 Furosemide (Lasix Iv*) 60 mg IV 0800,1700 [facility] Last Admin: 04/25/18 09:51 Dose: 60 mg Heparin Sodium (Porcine) (Heparin Vial(*)) 5,000 units SUBCUT Q12HR [facility] Insulin Human Lispro (Humalog*) 0 units SUBCUT ACHS [facility]; Protocol Last Admin: 04/25/18 13:11 Dose: 4 unit Metoprolol Succinate (Toprol Xl Tab*) 25 mg PO BID [facility] Last Admin: 04/25/18 09:50 Dose: 25 mg Nitroglycerin (Nitroglycerin Tab 0.4 Mg*) 0.4 mg SL Q5M PRN PRN Reason: chest pain Tamsulosin HCl (Flomax Cap*) 0.4 mg PO BEDTIME [facility] Last Admin: 04/24/18 20:27 Dose: 0.4 mg Tiotropium [place] (Spiriva Cap.Inh*) 1 cap INH DAILY [facility] Last Admin: 04/25/18 07:56 Dose: 1 cap Vital Signs - 8 hr 04/25/18 04/25/18 04/25/18 07:33 07:58 08:00 Temperature 97.8 F Pulse Rate 68 66 Respiratory 18 18 18 Rate Blood Pressure 135/62 (mmHg) O2 Sat by Pulse 100 97 Oximetry 04/25/18 11:39 Temperature 98.1 F Pulse Rate 66 Respiratory 20 Rate Blood Pressure 161/73 (mmHg) O2 Sat by Pulse 100 Oximetry Oxygen Devices in Use Now: Nasal Cannula Result Diagrams: 04/25/18 06:21 04/25/18 06:21 Assess/Plan/Problems-Billing Assessment: - Patient Problems (1) SOB (shortness of breath) Current Visit: Yes Status: Acute Code(s): R06.02 - SHORTNESS OF BREATH SNOMED Code(s): 763694153 Comment: -Likely due to CHF exacerbation especially with improved SOB with current diuresis -Continue IV Lasix BID -Elevated D-dimer likely due to CHF exacerbation in the setting of acute on chronic RI, however, will consider CTA of chest on Friday if with exacerbation of slow defervesence or if PA pressures in echo is elevated -Will obtain 2D echo in AM -Check TSH in AM -Will D/C regular unrestricted diet and instead place on low Sodium and heart healthy diet (2) Acute on chronic renal insufficiency Current Visit: Yes Status: Acute Code(s): N28.9 - DISORDER OF KIDNEY AND URETER, UNSPECIFIED; N18.9 - CHRONIC KIDNEY DISEASE, UNSPECIFIED SNOMED Code(s ): 126003716 Comment: -Stable since last month, however, doubling of renal function since October unclear -Will obtain urine lytes for FE-Urea and obtain renal U/S to eval for post- renal causes of failure (3) CAD (coronary artery disease) Current Visit: No Status: Chronic Code(s): I25.10 - ATHSCL HEART DISEASE OF [place] CORONARY ARTERY W/O ANG PCTRS SNOMED Code(s): 78894703 Comment: -Continue ASA, Plavix, Atorvastatin, and Metoprolol (4) Type 2 diabetes mellitus Current Visit: No Status: Chronic Comment: -Continue to hold PO meds -Continue ISS -Continue watchful waiting (5) DVT prophylaxis Current Visit: No Status: Acute Code(s): XOP0350 - SNOMED Code(s): 035150850 Comment: -Changed frequency of Heparin SQ to q12H Status and Disposition: -As above -For possible D/C in 1-2 days
[2018-04-25] MEDS: Tamsulosin CAP* 0.4 MG PO SCH (21:06)
[2018-04-26 05:46] LABS: Hematocrit 29 % (42-52); Hemoglobin 9.5 g/dl (14.0-18.0); Mean Corpuscular HGB Conc 33 g/dl (31-36); Mean Corpuscular Hemoglobin 33 pg (27-31); Mean Corpuscular Volume 98 fL (80-94); Mean Platelet Volume 7.8 fL (7.4-10.4); Platelet Count 143 10^3/ul (150-450); Red Cell Distribution Width 16 % (10.5-15); White Blood Count 8.2 10^3/ul (3.5-10.8)
[2018-04-26 05:51] LABS: ABS Basophils 0 10^3/ul (0-0.2); ABS Eosinophils 0.3 10^3/ul (0-0.6); ABS Lymphocytes 1.2 10^3/ul (1.0-4.8); ABS Monocytes 0.8 10^3/ul (0-0.8); ABS Neutrophils 5.9 10^3/ul (1.5-7.7); ABS Nucleated RBC 0 10^3/ul
[2018-04-26 06:03] LABS: EGFR Non-African American 11.6 (>60)
[2018-04-26 06:53] LABS: Monocytes % 8 %
[2018-04-26 06:54] LABS: ABS Neutrophils 6.5 10^3/ul (1.5-7.7)
[2018-04-26] MEDS: Insulin LISPRO* 1 UNITS UNIT SUBCUT SCH ×4 (07:44→21:25)
[2018-04-26] MEDS: Atorvastatin* 10 MG TAB PO SCH (08:13)
[2018-04-26] MEDS: Heparin VIAL(*) 5000 UNITS/ML VIAL (FIVE THOUSAND) SUBCUT SCH ×2 (08:14→21:25)
[2018-04-26] MEDS: Aspirin EC TAB* 81 MG TAB.EC PO SCH (08:14)
[2018-04-26] MEDS: Furosemide IV* 10 MG/ML VIAL (40 MG) IV SCH (08:14)
[2018-04-26] MEDS: BuPROPion XL* 150 MG TAB.XL PO SCH (08:14)
[2018-04-26] MEDS: Clopidogrel TAB* 75 MG PO SCH (08:14)
[2018-04-26] MEDS: Metoprolol Succinate XL TAB* 25 MG PO SCH ×2 (08:14→21:24)
[2018-04-26] MEDS: Tiotropium CAP.INH* CAP.INH/18 MCG (USE ORDER SET !) INH SCH (09:01)
[2018-04-26] MEDS ORDERED: Magnesium Sulf 4 GM/100 ML IV* 4,000 MG/100 ML BAG IVPB ONE (09:50)
[2018-04-26] MEDS ORDERED: Furosemide IV* 100 MG in NS 0.9% 100 ML* 90 ML IV SCH ×5 (12:00→12:21)
[2018-04-26] MEDS: Calcium Acetate CAP* 667 MG PO SCH ×2 (12:37→16:58)
[2018-04-26] MEDS: Metolazone TAB* 5 MG PO SCH (12:37)
[2018-04-26] MEDS ORDERED: Calcitriol CAP* 0.25 MCG PO SCH (13:00)
[2018-04-26] MEDS: Furosemide IV* 100 MG in NS 0.9% 100 ML* 90 ML IV SCH (13:34)
--- NOTE | 2018-04-26 15:39 | PN ---
Subjective Date of Service: 04/26/18 Interval History: Pt seen and examined. Meds and labs reviewed. Pt mentioned that he has had HOWE while transferring from bed to chair, but acute SOB resolved quickly. Pt incontinent of urine, thus, I/Os recorded unreliable. CC: HOWE ROS: Denied [place]/dizziness, F/C, N/V, CP, increased cough, sputum production, abd pain, diarrhea, constipation, myalgias, arthralgias, throat pain, and new skin lesions. The rest of the 14 point ROS are unremarkable. PHYSICAL EXAM: GEN APPEARANCE: Awake, not in acute distress HEENT: NC/AT, PERRLA, moist oral mucosa, (-) throat erythema NECK: Soft, supple, (-) cervical LAD, (-)JVD, (+)HJR HEART: S1S2 WNL, RRR, No MRG CHEST: CTA, BL, GAE, No W/R/R ABD: Soft, ND/NT, NABS 4x Q EXT: No C/C/BLLE edema, 2+ on R; 1+ on left SKIN: Warm to touch PSYCH: No active psychosis, hallucinations, depression, SI/HI Objective Active Medications: Acetaminophen (Tylenol Tab*) 650 mg PO Q4H PRN PRN Reason: FEVER/PAIN Aspirin (Aspirin Ec Tab*) 81 mg PO DAILY [facility] Last Admin: 04/26/18 08:14 Dose: 81 mg Atorvastatin Calcium (Lipitor*) 10 mg PO DAILY [facility] Last Admin: 04/26/18 08:13 Dose: 10 mg Bupropion HCl (Wellbutrin Xl *) 150 mg PO DAILY [facility]; Protocol Last Admin: 04/26/18 08:14 Dose: 150 mg Calcium Acetate (Phoslo Cap*) 1,334 mg PO AC [facility] Last Admin: 04/26/18 12:37 Dose: 1,334 mg Clopidogrel Bisulfate (Plavix Tab*) 75 mg PO DAILY [facility] Last Admin: 04/26/18 08:14 Dose: 75 mg Dextrose (D50w Syringe 50 Ml*) 12.5 gm IV PUSH .FOR FS < 60 - SS PRN PRN Reason: FS < 60 Heparin Sodium (Porcine) (Heparin Vial(*)) 5,000 units SUBCUT Q12HR [facility] Last Admin: 04/26/18 08:14 Dose: 5,000 units Furosemide 100 mg/ Sodium (Chloride) 100 mls @ 5 mls/hr IV Q20H [facility]; Protocol Stop: 04/28/18 11:59 Last Admin: 04/26/18 13:34 Dose: 5 mls/hr Insulin Human Lispro (Humalog*) 0 units SUBCUT ACHS [facility]; Protocol Last Admin: 04/26/18 12:37 Dose: 4 unit Metolazone (Zaroxolyn Tab*) 5 mg PO DAILY@0830 [facility] Last Admin: 04/26/18 12:37 Dose: 5 mg Metoprolol Succinate (Toprol Xl Tab*) 25 mg PO BID [facility] Last Admin: 04/26/18 08:14 Dose: 25 mg Nitroglycerin (Nitroglycerin Tab 0.4 Mg*) 0.4 mg SL Q5M PRN PRN Reason: chest pain Tamsulosin HCl (Flomax Cap*) 0.4 mg PO BEDTIME [facility] Last Admin: 04/25/18 21:06 Dose: 0.4 mg Tiotropium [place] (Spiriva Cap.Inh*) 1 cap INH DAILY [facility] Last Admin: 04/26/18 09:01 Dose: 1 cap Vital Signs - 8 hr 04/26/18 04/26/18 04/26/18 07:51 09:01 11:48 Temperature 98.0 F 98.2 F Pulse Rate 66 68 58 Respiratory 18 18 20 Rate Blood Pressure 144/53 143/50 (mmHg) O2 Sat by Pulse 97 97 99 Oximetry Oxygen Devices in Use Now: Nasal Cannula Result Diagrams: 04/26/18 05:39 04/26/18 05:39 Assess/Plan/Problems-Billing Assessment: - Patient Problems (1) SOB (shortness of breath) Current Visit: Yes Status: Acute Code(s): R06.02 - SHORTNESS OF BREATH SNOMED Code(s): 039567970 Comment: -Likely due to CHF exacerbation especially with improved SOB with current diuresis -Will D/C IV boluses of Lasix and instead will place on co-equivalent Lasix gtt dose along with Metolazone for synergy -Elevated D-dimer likely due to CHF exacerbation in the setting of acute on chronic RI, however, since persistent HOWE despite high Lasix boluses along with echo data being unavailable, will order for V/Q scan in AM -Will obtain 2D echo in AM -TSH found to be normal -Continue low Sodium and heart healthy diet -BNP slightly improved---continue to monitor (2) Acute on chronic renal insufficiency Current Visit: Yes Status: Acute Code(s): N28.9 - DISORDER OF KIDNEY AND URETER, UNSPECIFIED; N18.9 - CHRONIC KIDNEY DISEASE, UNSPECIFIED SNOMED Code(s ): 061390906 Comment: -Stable since last month, however, doubling of renal function since October unclear -Will obtain urine lytes for FE-Urea and obtain renal U/S together suggest an intra-renal/medical cause of acute on chronic RI -Given worsening renal functions likely due to chronic medical issues, along with 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, will place pt on PhosLo qAC -Given 1x dose of Calcitriol, -Will defer with renal for subsequent doses given corrected calcium level close to 9.5 and iPTH not yet 2.5-3x ULN (3) CAD (coronary artery disease) Current Visit: No Status: Chronic Code(s): I25.10 - ATHSCL HEART DISEASE OF [place] CORONARY ARTERY W/O ANG PCTRS SNOMED Code(s): 95908837 Comment: -Continue ASA, Plavix, Atorvastatin, and Metoprolol (4) Type 2 diabetes mellitus Current Visit: No Status: Chronic Comment: -Continue to hold PO meds -Continue ISS -Continue watchful waiting (5) DVT prophylaxis Current Visit: No Status: Acute Code(s): IPP4376 - SNOMED Code(s): 034804057 Comment: -Changed frequency of Heparin SQ to q12H Status and Disposition: -As above -For possible D/C in 1-2 days
[2018-04-26] MEDS: Tamsulosin CAP* 0.4 MG PO SCH (21:24)
[2018-04-27 06:31] LABS: Hematocrit 30 % (42-52); Hemoglobin 10.2 g/dl (14.0-18.0); Mean Corpuscular HGB Conc 34 g/dl (31-36); Mean Corpuscular Hemoglobin 33 pg (27-31); Mean Corpuscular Volume 97 fL (80-94); Platelet Count 149 10^3/ul (150-450); Red Blood Count 3.09 10^6/ul (4.00-5.40); Red Cell Distribution Width 15 % (10.5-15); White Blood Count 8.2 10^3/ul (3.5-10.8)
[2018-04-27 06:49] LABS: EGFR Non-African American 11.5 (>60)
[2018-04-27] MEDS: Tiotropium CAP.INH* CAP.INH/18 MCG (USE ORDER SET !) INH SCH (07:33)
[2018-04-27] MEDS: Insulin LISPRO* 1 UNITS UNIT SUBCUT SCH ×4 (07:44→21:36)
[2018-04-27] MEDS ORDERED: Potassium Chlor TAB* 20 MEQ TAB.ER PO ONE (08:39)
[2018-04-27] MEDS: BuPROPion XL* 150 MG TAB.XL PO SCH (08:48)
[2018-04-27] MEDS: Clopidogrel TAB* 75 MG PO SCH (08:49)
[2018-04-27] MEDS: Aspirin EC TAB* 81 MG TAB.EC PO SCH (08:49)
[2018-04-27] MEDS: Metoprolol Succinate XL TAB* 25 MG PO SCH ×2 (08:49→21:35)
[2018-04-27] MEDS: Atorvastatin* 10 MG TAB PO SCH (08:49)
[2018-04-27] MEDS: Calcium Acetate CAP* 667 MG PO SCH ×3 (08:49→16:43)
[2018-04-27] MEDS: Metolazone TAB* 5 MG PO SCH (08:49)
[2018-04-27] MEDS: Heparin VIAL(*) 5000 UNITS/ML VIAL (FIVE THOUSAND) SUBCUT SCH ×2 (08:49→21:36)
[2018-04-27] MEDS: Furosemide IV* 100 MG in NS 0.9% 100 ML* 90 ML IV SCH ×2 (09:05→16:48)
--- NOTE | 2018-04-27 15:23 | PN ---
Subjective Date of Service: 04/27/18 Interval History: Pt seen and examined. Meds and labs reviewed. CC: N/A ROS: Denied [place]/dizziness, F/C, N/V, CP, increased cough, sputum production, abd pain, diarrhea, constipation, myalgias, arthralgias, throat pain, and new skin lesions. The rest of the 14 point ROS are unremarkable. PHYSICAL EXAM: GEN APPEARANCE: Awake, not in acute distress HEENT: NC/AT, PERRLA, moist oral mucosa, (-) throat erythema NECK: Soft, supple, (-) cervical LAD, (-)JVD, (+)HJR HEART: S1S2 WNL, RRR, No MRG CHEST: CTA, BL, GAE, No W/R/R ABD: Soft, ND/NT, NABS 4x Q EXT: No C/C/BLLE edema, 2+ on R; 1+ on left SKIN: Warm to touch PSYCH: No active psychosis, hallucinations, depression, SI/HI Objective Active Medications: Acetaminophen (Tylenol Tab*) 650 mg PO Q4H PRN PRN Reason: FEVER/PAIN Aspirin (Aspirin Ec Tab*) 81 mg PO DAILY [facility] Last Admin: 04/27/18 08:49 Dose: 81 mg Atorvastatin Calcium (Lipitor*) 10 mg PO DAILY [facility] Last Admin: 04/27/18 08:49 Dose: 10 mg Bupropion HCl (Wellbutrin Xl *) 150 mg PO DAILY [facility]; Protocol Last Admin: 04/27/18 08:48 Dose: 150 mg Calcium Acetate (Phoslo Cap*) 1,334 mg PO AC [facility] Last Admin: 04/27/18 13:22 Dose: 1,334 mg Clopidogrel Bisulfate (Plavix Tab*) 75 mg PO DAILY [facility] Last Admin: 04/27/18 08:49 Dose: 75 mg Dextrose (D50w Syringe 50 Ml*) 12.5 gm IV PUSH .FOR FS < 60 - SS PRN PRN Reason: FS < 60 Heparin Sodium (Porcine) (Heparin Vial(*)) 5,000 units SUBCUT Q12HR [facility] Last Admin: 04/27/18 08:49 Dose: 5,000 units Furosemide 100 mg/ Sodium (Chloride) 100 mls @ 6 mls/hr IV Q20H [facility]; Protocol Stop: 04/28/18 11:59 Insulin Human Lispro (Humalog*) 0 units SUBCUT ACHS [facility]; Protocol Last Admin: 04/27/18 13:22 Dose: 8 unit Metolazone (Zaroxolyn Tab*) 5 mg PO DAILY@0830 [facility] Last Admin: 04/27/18 08:49 Dose: 5 mg Metoprolol Succinate (Toprol Xl Tab*) 25 mg PO BID [facility] Last Admin: 04/27/18 08:49 Dose: 25 mg Nitroglycerin (Nitroglycerin Tab 0.4 Mg*) 0.4 mg SL Q5M PRN PRN Reason: chest pain Tamsulosin HCl (Flomax Cap*) 0.4 mg PO BEDTIME [facility] Last Admin: 04/26/18 21:24 Dose: 0.4 mg Tiotropium [place] (Spiriva Cap.Inh*) 1 cap INH DAILY [facility] Last Admin: 04/27/18 07:33 Dose: 1 cap Vital Signs - 8 hr 04/27/18 04/27/18 04/27/18 07:33 07:44 08:09 Temperature 98.6 F Pulse Rate 72 64 Respiratory 20 16 Rate Blood Pressure 164/72 (mmHg) O2 Sat by Pulse 94 97 Oximetry 04/27/18 12:13 Temperature 98.7 F Pulse Rate 62 Respiratory 18 Rate Blood Pressure 166/66 (mmHg) O2 Sat by Pulse 99 Oximetry Oxygen Devices in Use Now: Nasal Cannula - Nutrition: Malnutrition Diagnosis/Plan Malnutrition Assessment by Registered Dietitian: Malnutrition Assessment Clinical Characteristics Acute,Moderate Malnutrition Assessment: 11.6-19.2% wt loss x past month - severe Criteria <75% EEE x > 7 days Malnutrition Assessment: Pt with severe wt loss that appears to have been Interventions unintended per review of H&P and report of reduced appetite captain/airline pilot, despite conversation with pt today stating that wt loss was deliberate. Pt eating well here, so no intervention currently indicated; will follow for adequacy and make further recs as indicated. Malnutrition Assessment: Goals 1. Intake will remain adequate to maintain stable wt without further unintended wt loss 2. Phos will normalize with phos binder 3. Cr will stabilize to baseline value per hx CKD Result Diagrams: 04/27/18 06:07 04/27/18 06:06 Assess/Plan/Problems-Billing Assessment: - Patient Problems (1) SOB (shortness of breath) Current Visit: Yes Status: Acute Code(s): R06.02 - SHORTNESS OF BREATH SNOMED Code(s): 784679906 Comment: -Likely due to CHF exacerbation especially with improved SOB with current diuresis -CXR shows persistent interstitial edema---still on 3.5 L of O2 by NC at rest; no O2 at home -Weight shows improvement and I/Os in the negatives today -Will increase Lasix gtt to 6mg/hr -Continue Metolazone -V/Q scan low probability for PE -Awaiting result of 2Decho -TSH found to be normal -Continue low Sodium and heart healthy diet (2) Acute on chronic renal insufficiency Current Visit: Yes Status: Acute Code(s): N28.9 - DISORDER OF KIDNEY AND URETER, UNSPECIFIED; N18.9 - CHRONIC KIDNEY DISEASE, UNSPECIFIED SNOMED Code(s ): 209647018 Comment: -Stable since last month, however, doubling of renal function since October unclear -Will obtain urine lytes for FE-Urea and obtain renal U/S together suggest an intra-renal/medical cause of acute on chronic RI -Given worsening renal functions likely due to chronic medical issues, along with 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, will place pt on PhosLo qAC -Given 1x dose of Calcitriol, yesterday -Will defer with renal for subsequent doses given corrected calcium level close to 9.5 and iPTH not yet 2.5-3x ULN (3) CAD (coronary artery disease) Current Visit: No Status: Chronic Code(s): I25.10 - ATHSCL HEART DISEASE OF [place] CORONARY ARTERY W/O ANG PCTRS SNOMED Code(s): 61397300 Comment: -Continue ASA, Plavix, Atorvastatin, and Metoprolol (4) Type 2 diabetes mellitus Current Visit: No Status: Chronic Comment: -Continue to hold PO meds -Continue ISS -Continue watchful waiting (5) DVT prophylaxis Current Visit: No Status: Acute Code(s): KTL5691 - SNOMED Code(s): 045496337 Comment: -Changed frequency of Heparin SQ to q12H Status and Disposition: -As above -Continue to monitor daily standing weights and I/Os -For PT eval -Consider ambulatory sats prior to planned D/C -For possible D/C in 1-2 days
[2018-04-27] MEDS ORDERED: Furosemide IV* 10 MG/ML 10 ML VIAL (100 MG) ONE (16:10)
--- NOTE | 2018-04-27 17:56 | ECHO ---
Patient: VINICIO PEÑA [facility] Rec#: [id number] : 1930 Date: 04/27/2018 Age: 87y Height: 173 cm / 68.1 in Weight: 85.8 kg / 189.1 lbs Sex: M BSA: 2 Room#: [facility] Admit Date#: 04/24/2018 Type: Inpatient Referring: Tavon Hernandez Reading: Edward Tian MD Program Administrator: Maite Tillman RN RDCS CC: Lucila Shine MD Transthoracic Echocardiogram Indication: CHF BP: 166/66 HR: 57 Rhythm: Bradycardia Findings History: CAD, CHF, HTN, DM, COPD, CKD, smoker Technical Comments: The study is technically limited due to the patient's history of COPD. The study is technically limited due to the patient's smoking history. Left Ventricle: The left ventricular chamber size is normal. Mild concentric left ventricular hypertrophy is observed. There is increased basal septal hypertrophy noted without evidence of an increased gradient across the left ventricular outflow tract. There is global hypokinesis of the left ventricle with minor regional variation. There is severely decreased left ventricular systolic function. The estimated ejection fraction is 25-30%. Abnormal left ventricular diastolic function is observed. Left Atrium: The left atrium is mildly dilated. Right Ventricle: The right ventricular cavity size is normal. The right ventricular global systolic function is normal. Right Atrium: The right atrium is mildly dilated. Aortic Valve: The aortic valve structure is not well visualized. The aortic valve leaflets are mildly thickened. There is trace to mild aortic regurgitation. There is no evidence of aortic stenosis. Mitral Valve: The mitral valve leaflets are mildly thickened. There is mild to moderate mitral regurgitation. There is no evidence of mitral stenosis. Tricuspid Valve: The tricuspid valve leaflets are normal. There is trace to mild tricuspid regurgitation. Unable to estimate the right ventricular systolic pressure. There is no tricuspid stenosis. Pulmonic Valve: The pulmonic valve structure is not well visualized. Pericardium: There is no significant pericardial effusion. A left pleural effusion is present. Aorta: There is no dilatation of the ascending aorta. The aortic arch is not well visualized. There is moderate dilatation of the aortic root. Pulmonary Artery: The main pulmonary artery is not well visualized. Venous: The inferior vena cava appears normal in size. There is no change in the dimension of the inferior vena cava with respiration consistent with markedly increased right atrial pressure. Conclusions There is increased basal septal hypertrophy noted without evidence of an increased gradient across the left ventricular outflow tract. There is global hypokinesis of the left ventricle with minor regional variation. There is severely decreased left ventricular systolic function. The estimated ejection fraction is 25-30%. There is trace to mild aortic regurgitation. There is no evidence of aortic stenosis. There is mild to moderate mitral regurgitation. There is trace to mild tricuspid regurgitation. Unable to estimate the right ventricular systolic pressure. There is no significant pericardial effusion. A left pleural effusion is present. Compared to study of 09/29/17, the LV dysfunction is new Valve function is the same Measurements Name Value Normal Range RVDdMajor (2D) 3.3 cm (2.2 - 4.4) RAd ISD 4CH 5 cm (3.4 - 4.9) RA (A4C)W 3.7 cm (2.9 - 4.6) IVSd (2D) 1.1 cm (0.6 - 1) LVPWd (2D) 1.1 cm (0.6 - 1) LVIDd (2D) 6 cm (3.6 - 5.4) LVIDs (2D) 5.2 cm - LV FS (2D) 13 % (25 - 45) Aortic Annulus 2.5 cm (1.4 - 2.6) Ao root diameter (2D) 4 cm (2.1 - 3.5) Ascending Ao 3.4 cm (2.1 - 3.4) LA dimension (AP) 2D 4.7 cm (2.3 - 3.8) LAd ISD 4CH 4.7 cm (2.9 - 5.3) LA ISD 4CH W 4.8 cm (2.5 - 4.5) Name Value Normal Range LA ESV BP (A/L) index 31.3 ml/m2 - Name Value Normal Range MV E-wave Vmax 0.58 m/sec - MV deceleration time 401 msec - MV A-wave Vmax 0.96 m/sec - LV septal e' Vmax 0.07 m/sec - LV lateral e' Vmax 0.05 m/sec - LV E:e' septal ratio 8.3 ratio - LV E:e' lateral ratio 11.6 ratio - Name Value Normal Range AV Vmax 1.3 m/sec - AV VTI 30.2 cm - AV peak gradient 6 mmHg - AV mean gradient 3 mmHg - LVOT Vmax 0.55 m/sec - LVOT VTI 12.1 cm - LVOT peak gradient 1 mmHg - LVOT mean gradient 1 mmHg - Name Value Normal Range IVC diameter 2 cm - Name Value Normal Range PV Vmax 0.47 m/sec -
[2018-04-27] MEDS: Tamsulosin CAP* 0.4 MG PO SCH (21:35)
[2018-04-28 06:18] LABS: ABS Basophils 0.1 10^3/ul (0-0.2); ABS Eosinophils 0.3 10^3/ul (0-0.6); ABS Lymphocytes 1.3 10^3/ul (1.0-4.8); ABS Monocytes 0.7 10^3/ul (0-0.8); ABS Neutrophils 5.8 10^3/ul (1.5-7.7); ABS Nucleated RBC 0 10^3/ul; Eosinophil % 3.2 %; Hematocrit 30 % (42-52); Hemoglobin 10.2 g/dl (14.0-18.0); Lymphocyte % 15.9 %; Mean Corpuscular HGB Conc 34 g/dl (31-36); Mean Corpuscular Hemoglobin 33 pg (27-31); Mean Corpuscular Volume 97 fL (80-94); Mean Platelet Volume 8.1 fL (7.4-10.4); Nucleated Red Blood Cells % 0; Platelet Count 164 10^3/ul (150-450); Red Blood Count 3.08 10^6/ul (4.00-5.40); Red Cell Distribution Width 15 % (10.5-15); White Blood Count 8.2 10^3/ul (3.5-10.8)
[2018-04-28 06:36] LABS: EGFR Non-African American 11.2 (>60)
[2018-04-28] MEDS: Furosemide IV* 100 MG in NS 0.9% 100 ML* 90 ML IV SCH ×2 (07:30→11:18)
[2018-04-28] MEDS: Insulin LISPRO* 1 UNITS UNIT SUBCUT SCH ×4 (08:16→20:22)
[2018-04-28] MEDS: BuPROPion XL* 150 MG TAB.XL PO SCH (08:16)
[2018-04-28] MEDS: Clopidogrel TAB* 75 MG PO SCH (08:16)
[2018-04-28] MEDS: Calcium Acetate CAP* 667 MG PO SCH ×3 (08:16→17:23)
[2018-04-28] MEDS: Metolazone TAB* 5 MG PO SCH (08:16)
[2018-04-28] MEDS: Heparin VIAL(*) 5000 UNITS/ML VIAL (FIVE THOUSAND) SUBCUT SCH ×2 (08:16→20:22)
[2018-04-28] MEDS: Atorvastatin* 10 MG TAB PO SCH (08:16)
[2018-04-28] MEDS: Aspirin EC TAB* 81 MG TAB.EC PO SCH (08:16)
[2018-04-28] MEDS: Metoprolol Succinate XL TAB* 25 MG PO SCH ×2 (08:16→20:22)
[2018-04-28] MEDS: Tiotropium CAP.INH* CAP.INH/18 MCG (USE ORDER SET !) INH SCH (08:30)
--- NOTE | 2018-04-28 11:21 | CONSULT ---
Palliative / Hospice Consult Ordering Provider: Tavon Hernandez - Dr. Corinne Shine is her primary - Subjective Code Status: DNR Advance Directives Location: In Chart MOLST Part A Completed: Yes Date: 04/28/18 MOLST Part E Completed:: Yes - partially completed Date: 04/28/18 - History or Present Illness History or Present Illness: 87 yo male with CAD, Diastolic heart failure, chronic kidney disease, COPD, BPH , HTN and diabetes who presented to the ER with SOB. He was going to travel to [place] but was not feeling well and having more trouble breathing. His CXR showed cardiomegaly with persistent interstitial edema, echo showed L pleural effusion, LV dysfunction with EF of 25-30% showing systolic heart failure in addition to diastolic failure, his EGFR is 11.2 showing chronic kidney disease, albumin is 2.6 and he has lost more than 10% of his weight in less than a year showing malnutrition. Lab Values: Abnormal Lab Results 04/26/18 04/27/18 04/27/18 05:39 12:36 16:40 WBC RBC Hgb Hct MCV MCH MCHC RDW Plt Count MPV Neut % (Auto) Lymph % (Auto) [place] % (Auto) Eos % (Auto) Baso % (Auto) Absolute Neuts (auto) Absolute Lymphs (auto) Absolute Monos (auto) Absolute Eos (auto) Absolute Basos (auto) Absolute Nucleated RBC Nucleated RBC % Hem Pathologist Commnt Sodium Potassium Chloride Carbon Dioxide Anion Gap BUN Creatinine Est GFR ( Amer) Est GFR (Non-Af Amer) BUN/Creatinine Ratio Glucose POC Glucose (mg/dL) 324 H 128 H Calcium Phosphorus Magnesium Total Bilirubin AST ALT Alkaline Phosphatase B-Natriuretic Peptide Total Protein Albumin Globulin Albumin/Globulin Ratio 04/27/18 04/28/18 04/28/18 21:21 05:57 05:57 WBC 8.2 RBC 3.08 L Hgb 10.2 L Hct 30 L MCV 97 H MCH 33 H MCHC 34 RDW 15 Plt Count 164 MPV 8.1 Neut % (Auto) 71.5 Lymph % (Auto) 15.9 [place] % (Auto) 8.3 Eos % (Auto) 3.2 Baso % (Auto) 1.1 Absolute Neuts (auto) 5.8 Absolute Lymphs (auto) 1.3 Absolute Monos (auto) 0.7 Absolute Eos (auto) 0.3 Absolute Basos (auto) 0.1 Absolute Nucleated RBC 0 Nucleated RBC % 0 Hem Pathologist Commnt Sodium 135 Potassium TNP Chloride 98 L Carbon Dioxide 25 Anion Gap 12 H BUN 68 H Creatinine 4.91 H Est GFR ( Amer) 13.6 Est GFR (Non-Af Amer) 11.2 BUN/Creatinine Ratio 13.8 Glucose 128 H POC Glucose (mg/dL) 145 H Calcium 8.3 L Phosphorus 5.3 H Magnesium 2.1 Total Bilirubin 0.40 AST TNP ALT 7 Alkaline Phosphatase 51 B-Natriuretic Peptide Total Protein 5.4 L Albumin 2.7 L Globulin 2.7 Albumin/Globulin Ratio 1.0 04/28/18 04/28/18 04/28/18 05:57 07:37 08:38 WBC RBC Hgb Hct MCV MCH MCHC RDW Plt Count MPV Neut % (Auto) Lymph % (Auto) [place] % (Auto) Eos % (Auto) Baso % (Auto) Absolute Neuts (auto) Absolute Lymphs (auto) Absolute Monos (auto) Absolute Eos (auto) Absolute Basos (auto) Absolute Nucleated RBC Nucleated RBC % Hem Pathologist Commnt Sodium Potassium 3.3 L Chloride Carbon Dioxide Anion Gap BUN Creatinine Est GFR ( Amer) Est GFR (Non-Af Amer) BUN/Creatinine Ratio Glucose POC Glucose (mg/dL) 147 H Calcium Phosphorus Magnesium Total Bilirubin AST 11 L ALT Alkaline Phosphatase B-Natriuretic Peptide 1518 H Total Protein Albumin Globulin Albumin/Globulin Ratio Laboratory Last Values WBC 8.2 10^3/ul (3.5-10.8) 04/28/18 05:57 RBC 3.08 10^6/ul (4.00-5.40) L 04/28/18 05:57 Hgb 10.2 g/dl (14.0-18.0) L 04/28/18 05:57 Hct 30 % (42-52) L 04/28/18 05:57 MCV 97 fL (80-94) H 04/28/18 05:57 MCH 33 pg (27-31) H 04/28/18 05:57 MCHC 34 g/dl (31-36) 04/28/18 05:57 RDW 15 % (10.5-15) 04/28/18 05:57 Plt Count 164 10^3/ul (150-450) 04/28/18 05:57 MPV 8.1 fL (7.4-10.4) 04/28/18 05:57 Neut % (Auto) 71.5 % 04/28/18 05:57 Lymph % (Auto) 15.9 % 04/28/18 05:57 [place] % (Auto) 8.3 % 04/28/18 05:57 Eos % (Auto) 3.2 % 04/28/18 05:57 Baso % (Auto) 1.1 % 04/28/18 05:57 Absolute Neuts (auto) 5.8 10^3/ul (1.5-7.7) 04/28/18 05:57 Absolute Lymphs (auto) 1.3 10^3/ul (1.0-4.8) 04/28/18 05:57 Absolute Monos (auto) 0.7 10^3/ul (0-0.8) 04/28/18 05:57 Absolute Eos (auto) 0.3 10^3/ul (0-0.6) 04/28/18 05:57 Absolute Basos (auto) 0.1 10^3/ul (0-0.2) 04/28/18 05:57 Absolute Nucleated RBC 0 10^3/ul 04/28/18 05:57 Immature Gran % 2 % (0-9) 04/26/18 05:39 Neutrophils % 77 % 04/26/18 05:39 Band Neutrophils % 2 % (0-8) 04/26/18 05:39 Lymphocytes % 10 % 04/26/18 05:39 Monocytes % 8 % 04/26/18 05:39 Eosinophils % 3 % 04/26/18 05:39 Nucleated RBC % 0 04/28/18 05:57 Abs Neuts (Manual) 6.5 10^3/ul (1.5-7.7) 04/26/18 05:39 Abs Lymphs (Manual) 0.8 10^3/ul (1.0-4.8) L 04/26/18 05:39 Abs Monocytes (Manual) 0.7 10^3/ul (0-0.8) 04/26/18 05:39 Absolute Eos (Manual) 0.2 10^3/ul (0-0.6) 04/26/18 05:39 Normal RBC Morphology Not Reportable 04/26/18 05:39 Anisocytosis 1+ 04/26/18 05:39 Elliptocytes 1+ 04/26/18 05:39 Hem Pathologist Commnt 04/26/18 05:39 INR (Anticoag Therapy) 0.94 (0.77-1.02) 04/25/18 06:20 APTT 31.1 seconds (26.0-36.3) 04/24/18 15:12 D-Dimer, Quantitative > 1050 ng/mL (Less Than 230) H 04/24/18 15:12 Sodium 135 mmol/L (135-145) 04/28/18 05:57 Potassium 3.3 mmol/L (3.5-5.0) L 04/28/18 08:38 Chloride 98 mmol/L (101-111) L 04/28/18 05:57 Carbon Dioxide 25 mmol/L (22-32) 04/28/18 05:57 Anion Gap 12 mmol/L (2-11) H 04/28/18 05:57 BUN 68 mg/dL (6-24) H 04/28/18 05:57 Creatinine 4.91 mg/dL (0.67-1.17) H 04/28/18 05:57 Est GFR ( Amer) 13.6 (>60) 04/28/18 05:57 Est GFR (Non-Af Amer) 11.2 (>60) 04/28/18 05:57 BUN/Creatinine Ratio 13.8 (8-20) 04/28/18 05:57 Glucose 128 mg/dL (70-100) H 04/28/18 05:57 POC Glucose (mg/dL) 147 mg/dL (70-100) H 04/28/18 07:37 Lactic Acid 1.1 mmol/L (0.5-2.0) 04/24/18 15:12 Calcium 8.3 mg/dL (8.6-10.3) L 04/28/18 05:57 Phosphorus 5.3 mg/dL (2.5-5.0) H 04/28/18 05:57 Magnesium 2.1 mg/dL (1.9-2.7) 04/28/18 05:57 Total Bilirubin 0.40 mg/dL (0.2-1.0) 04/28/18 05:57 AST 11 U/L (13-39) L 04/28/18 08:38 ALT 7 U/L (7-52) 04/28/18 05:57 Alkaline Phosphatase 51 U/L (34-104) 04/28/18 05:57 CK-MB (CK-2) 3.2 ng/mL (0.6-6.3) 04/24/18 15:12 Troponin I 0.07 ng/mL (<0.04) H* 04/24/18 23:11 C-Reactive Protein 18.33 mg/L (<8.01) H 04/24/18 15:12 B-Natriuretic Peptide 1518 pg/mL (<=100) H 04/28/18 05:57 Total Protein 5.4 g/dL (6.4-8.9) L 04/28/18 05:57 Albumin 2.7 g/dL (3.2-5.2) L 04/28/18 05:57 Globulin 2.7 g/dL (2-4) 04/28/18 05:57 Albumin/Globulin Ratio 1.0 (1-3) 04/28/18 05:57 25-OH Vitamin D Total < 7.0 ng/mL (20-50) L 04/26/18 10:00 TSH 2.87 mcIU/mL (0.34-5.60) 04/26/18 05:39 PTH Intact 13.3 pmol/L (1.3-9.3) H 04/26/18 10:00 Calcium (PTH Intact) 8.0 mg/dL (8.6-10.3) L 04/26/18 10:00 Ur Creatinine Concen 29.67 mg/dL 04/25/18 22:13 Ur Urea Nitrogen Conc 205 mg/dL 04/25/18 22:13 - Objective Active Medications: Acetaminophen (Tylenol Tab*) 650 mg PO Q4H PRN PRN Reason: FEVER/PAIN Aspirin (Aspirin Ec Tab*) 81 mg PO DAILY [facility] Last Admin: 04/28/18 08:16 Dose: 81 mg Atorvastatin Calcium (Lipitor*) 10 mg PO DAILY [facility] Last Admin: 04/28/18 08:16 Dose: 10 mg Bupropion HCl (Wellbutrin Xl *) 150 mg PO DAILY [facility]; Protocol Last Admin: 04/28/18 08:16 Dose: 150 mg Calcium Acetate (Phoslo Cap*) 1,334 mg PO AC [facility] Last Admin: 04/28/18 08:16 Dose: 1,334 mg Clopidogrel Bisulfate (Plavix Tab*) 75 mg PO DAILY [facility] Last Admin: 04/28/18 08:16 Dose: 75 mg Dextrose (D50w Syringe 50 Ml*) 12.5 gm IV PUSH .FOR FS < 60 - SS PRN PRN Reason: FS < 60 Heparin Sodium (Porcine) (Heparin Vial(*)) 5,000 units SUBCUT Q12HR [facility] Last Admin: 04/28/18 08:16 Dose: 5,000 units Furosemide 100 mg/ Sodium (Chloride) 100 mls @ 6 mls/hr IV Q20H [facility]; Protocol Stop: 04/28/18 11:59 Last Admin: 04/28/18 07:30 Dose: 6 mls/hr Insulin Human Lispro (Humalog*) 0 units SUBCUT ACHS [facility]; Protocol Last Admin: 04/28/18 08:16 Dose: 1 unit Metolazone (Zaroxolyn Tab*) 5 mg PO DAILY@0830 [facility] Last Admin: 04/28/18 08:16 Dose: 5 mg Metoprolol Succinate (Toprol Xl Tab*) 25 mg PO BID [facility] Last Admin: 04/28/18 08:16 Dose: 25 mg Nitroglycerin (Nitroglycerin Tab 0.4 Mg*) 0.4 mg SL Q5M PRN PRN Reason: chest pain Tamsulosin HCl (Flomax Cap*) 0.4 mg PO BEDTIME [facility] Last Admin: 04/27/18 21:35 Dose: 0.4 mg Tiotropium [place] (Spiriva Cap.Inh*) 1 cap INH DAILY [facility] Last Admin: 04/28/18 08:30 Dose: 1 cap Vital Signs: Vital Signs: Temp Pulse Resp BP Pulse Ox 98.1 F 61 18 131/78 96 04/28/18 07:31 04/28/18 07:31 04/28/18 07:49 04/28/18 07:31 04/28/18 07:31 Patient Weight: Weight 82.01 kg Intake and Output: Intake & Output 04/26/18 04/27/18 04/28/18 04/29/18 06:59 06:59 06:59 06:59 Intake Total 1210 1051 673 240 Output Total 0 3050 3720 Balance 12099 240 Weight 79.379 kg 82.01 kg Intake: IV Fluids 56 203 Lasix 56 203 Medicated IV 15 Lasix 15 Oral 1210 980 470 240 Output: Urine 0 0 Aquino 3050 3720 Liquid Stool 0 Other: Estimated Void Large Large Large # Bowel Movements 0 0 0 Estimated Stool Amount Small # Voids 1 3 ADLs: Meal Record Start: 04/24/18 18: 52 Freq: DAILY@0900,1400,1800 Status: Active Protocol: Created 04/24/18 18:52 System (Rec: 04/24/18 18:52 System [email or web address]-C02) Document 04/25/18 13:45 [id number] (Rec: 04/25/18 13:45 [id number] TELE-C15) Document 04/25/18 18:00 [id number] (Rec: 04/25/18 21:42 [id number] TELE-C09) Document 04/26/18 09:00 [id number] (Rec: 04/26/18 15:04 [id number] TELE-C01) Document 04/26/18 14:00 [id number] (Rec: 04/26/18 15:14 [id number] TELE-C01) Document 04/26/18 20:52 [id number] (Rec: 04/26/18 20:52 FYO1094 TELE-C07) Document 04/27/18 09:00 [id number] (Rec: 04/27/18 10:59 [id number] TELE-C09) Document 04/27/18 14:00 [id number] (Rec: 04/27/18 14:51 [id number] TELE-C09) Document 04/27/18 18:38 [id number] (Rec: 04/27/18 18:38 [id number] TELE-C01) Document 04/28/18 09:00 [id number] (Rec: 04/28/18 10:11 [id number] TELE-C09) Intake and Output Start: 04/24/18 14: 11 Freq: Status: Active Protocol: Created 04/24/18 14:11 System (Rec: 04/24/18 14:11 System [id number]) Intake and Output Start: 04/24/18 18: 52 Freq: DAILY@0600,1400,2200 Status: Active Protocol: Created 04/24/18 18:52 System (Rec: 04/24/18 18:52 System TELE-C02) Document 04/24/18 21:36 [id number] (Rec: 04/24/18 21:37 [id number] TELE-C09) Document 04/25/18 00:06 [id number] (Rec: 04/25/18 00:07 [id number] TELE-C05) Document 04/25/18 05:55 [id number] (Rec: 04/25/18 06:00 OKW0987 TELE-C33) Document 04/25/18 14:00 [id number] (Rec: 04/25/18 15:14 [id number] TELE-C01) Document 04/25/18 21:42 [id number] (Rec: 04/25/18 21:45 [id number] TELE-C09) Document 04/26/18 06:00 [id number] (Rec: 04/26/18 06:08 [id number] TELE-C34) Document 04/26/18 14:00 [id number] (Rec: 04/26/18 15:14 [id number] TELE-C01) Document 04/26/18 22:48 [id number] (Rec: 04/26/18 22:49 [id number] TELE-C01) Document 04/27/18 06:00 [id number] (Rec: 04/27/18 06:06 [id number] TELE-C34) Document 04/27/18 14:00 [id number] (Rec: 04/27/18 14:18 [id number] TELE-C03) Document 04/27/18 19:41 [id number] (Rec: 04/27/18 19:41 [id number] TELE-M11) Document 04/27/18 21:46 [id number] (Rec: 04/27/18 21:46 [id number] TELE-C13) Document 04/27/18 22:43 [id number] (Rec: 04/27/18 22:43 [id number] TELE-C13) Document 04/28/18 05:57 [id number] (Rec: 04/28/18 05:58 [id number] TELE-C34) Head: Normal Eyes: No Scleral Icterus Neck: NL Appearance and Movements; NL JVP Cardiovascular: NL Sounds; No Murmurs; No JVD, RRR Respiratory: Clear to Auscultation, Clear to Percussion Extremities: - - mild pitting edema Neurological: Alert and Oriented x 3 - Assessment Assessment: 87 yo male with systolic and diastolic heart failure, chronic kidney disease, malnutrition, CAD, COPD, BPH, HTN & DM - Plan Consult Plan (MU): Hospice Plan: 1. Long discussion with patient about desires for care at this time he does not what CPR or intubation, MOLST form was partially completed because patient wants to speak with his about feeding tube and antibiotic choices. Also spoke with about his wishes. 2. He is a candidate for hospice care based on his CHF EF 25-30% and chronic renal disease and nutritional status alb 2.6 and 10% unintentional weight loss. He wants to stay at home with his and have hospice see him there. This was discussed with his primary care provider Dr. Shine and his . - Time On Unit Date of Evaluation: 04/28/18 Hospice Consult Time in: 09:30 Hospice Consult Time Out: 11:00 Hospice Consult Time Total: 90 > 50% of Time Spend In Counseling or Coordinating Care: Yes
--- NOTE | 2018-04-28 20:12 | PN ---
Subjective Date of Service: 04/28/18 Interval History: Patient seen and examined. VERY hard of hearing, states his breathing is "ok on the oxygen" and feels that he needs the supplemental O2. Denies chest pain, no fevers or chills, no further complaints. Objective Active Medications: Acetaminophen (Tylenol Tab*) 650 mg PO Q4H PRN PRN Reason: FEVER/PAIN Aspirin (Aspirin Ec Tab*) 81 mg PO DAILY [facility] Last Admin: 04/28/18 08:16 Dose: 81 mg Atorvastatin Calcium (Lipitor*) 10 mg PO DAILY [facility] Last Admin: 04/28/18 08:16 Dose: 10 mg Bupropion HCl (Wellbutrin Xl *) 150 mg PO DAILY [facility]; Protocol Last Admin: 04/28/18 08:16 Dose: 150 mg Calcium Acetate (Phoslo Cap*) 1,334 mg PO AC [facility] Last Admin: 04/28/18 17:23 Dose: 1,334 mg Clopidogrel Bisulfate (Plavix Tab*) 75 mg PO DAILY [facility] Last Admin: 04/28/18 08:16 Dose: 75 mg Dextrose (D50w Syringe 50 Ml*) 12.5 gm IV PUSH .FOR FS < 60 - SS PRN PRN Reason: FS < 60 Heparin Sodium (Porcine) (Heparin Vial(*)) 5,000 units SUBCUT Q12HR [facility] Last Admin: 04/28/18 08:16 Dose: 5,000 units Insulin Human Lispro (Humalog*) 0 units SUBCUT ACHS [facility]; Protocol Last Admin: 04/28/18 17:23 Dose: 4 unit Metolazone (Zaroxolyn Tab*) 5 mg PO DAILY@0830 [facility] Last Admin: 04/28/18 08:16 Dose: 5 mg Metoprolol Succinate (Toprol Xl Tab*) 25 mg PO BID [facility] Last Admin: 04/28/18 08:16 Dose: 25 mg Nitroglycerin (Nitroglycerin Tab 0.4 Mg*) 0.4 mg SL Q5M PRN PRN Reason: chest pain Tamsulosin HCl (Flomax Cap*) 0.4 mg PO BEDTIME [facility] Last Admin: 04/27/18 21:35 Dose: 0.4 mg Tiotropium [place] (Spiriva Cap.Inh*) 1 cap INH DAILY [facility] Last Admin: 04/28/18 08:30 Dose: 1 cap Vital Signs - 8 hr 04/28/18 04/28/18 04/28/18 15:41 20:00 20:05 Temperature 97.9 F 98.7 F Pulse Rate 56 71 Respiratory 18 16 16 Rate Blood Pressure 137/42 178/59 (mmHg) O2 Sat by Pulse 98 99 Oximetry Oxygen Devices in Use Now: Nasal Cannula Appearance: alert, deconditioned appearing Eyes: No Scleral Icterus, PERRLA Ears/Nose/Mouth/Throat: NL Teeth, Lips, Gums, - - hearing aid left ear Neck: NL Appearance and Movements; NL JVP Respiratory: - - diminished throughout, fine rales noted bilaterally Cardiovascular: NL Sounds; No Murmurs; No JVD Extremities: No Edema, No Clubbing, Cyanosis Neurological: Alert and Oriented x 3 Nutrition: Taking PO's - Nutrition: Malnutrition Diagnosis/Plan Malnutrition Assessment by Registered Dietitian: Malnutrition Assessment Clinical Characteristics Acute,Moderate Malnutrition Assessment: 11.6-19.2% wt loss x past month - severe Criteria <75% EEE x > 7 days Malnutrition Assessment: Pt with severe wt loss that appears to have been Interventions unintended per review of H&P and report of reduced appetite patrol captain, despite conversation with pt today stating that wt loss was deliberate. Pt eating well here, so no intervention currently indicated; will follow for adequacy and make further recs as indicated. Malnutrition Assessment: Goals 1. Intake will remain adequate to maintain stable wt without further unintended wt loss 2. Phos will normalize with phos binder 3. Cr will stabilize to baseline value per hx CKD Result Diagrams: 04/28/18 05:57 04/28/18 08:38 Assess/Plan/Problems-Billing Assessment: This is - Patient Problems (1) SOB (shortness of breath) Code(s): R06.02 - SHORTNESS OF BREATH SNOMED Code(s): 119733278 Comment: - Likely due to CHF exacerbation, acute on chronic systolic HF, EF 25-30% - CXR shows persistent interstitial edema and remains oxygen dependent - I&Os - Lasix drip DCd, change to oral torsemide, continue metolazone -Continue Metolazone -V/Q scan low probability for PE -Awaiting result of 2Decho -TSH found to be normal -Continue low Sodium and heart healthy diet (2) Acute on chronic renal insufficiency Code(s): N28.9 - DISORDER OF KIDNEY AND URETER, UNSPECIFIED; N18.9 - CHRONIC KIDNEY DISEASE, UNSPECIFIED SNOMED Code(s): 914060309 Comment: - Doubling of creat this admission, multifactorial - Phos-lo started - Avoid nephro toxic meds - Urine output adequate - Patient electing Hsopice, not likely candidate for dialysis - supportive care (3) CAD (coronary artery disease) Code(s): I25.10 - ATHSCL HEART DISEASE OF [place] CORONARY ARTERY W/O ANG PCTRS SNOMED Code(s): 35808509 Comment: - Continue ASA, Plavix, Atorvastatin, and Metoprolol (4) COPD (chronic obstructive pulmonary disease) Code(s): J44.9 - CHRONIC OBSTRUCTIVE PULMONARY DISEASE, UNSPECIFIED SNOMED Code(s): 05059191 Comment: - Spiriva, O2 as needed (5) HTN (hypertension) Code(s): I10 - ESSENTIAL (PRIMARY) HYPERTENSION SNOMED Code(s): 40922220 Comment: - BP labile, continue home meds (6) DVT prophylaxis Current Visit: No Status: Acute Code(s): CDY9127 - SNOMED Code(s): 968160897 Comment: -Changed frequency of Heparin SQ to q12H Status and Disposition: Inpatient, plan for discharge to home hospice when optimized and hospice sign on can be arranged.
[2018-04-28] MEDS: Tamsulosin CAP* 0.4 MG PO SCH (20:22)
[2018-04-29] MEDS: Tiotropium CAP.INH* CAP.INH/18 MCG (USE ORDER SET !) INH SCH (07:44)
[2018-04-29] MEDS: Clopidogrel TAB* 75 MG PO SCH (09:04)
[2018-04-29] MEDS: Atorvastatin* 10 MG TAB PO SCH (09:04)
[2018-04-29] MEDS: Metoprolol Succinate XL TAB* 25 MG PO SCH ×2 (09:04→21:39)
[2018-04-29] MEDS: Calcium Acetate CAP* 667 MG PO SCH ×3 (09:04→17:55)
[2018-04-29] MEDS: Aspirin EC TAB* 81 MG TAB.EC PO SCH (09:04)
[2018-04-29] MEDS: BuPROPion XL* 150 MG TAB.XL PO SCH (09:05)
[2018-04-29] MEDS: Metolazone TAB* 5 MG PO SCH (09:05)
[2018-04-29] MEDS: Insulin LISPRO* 1 UNITS UNIT SUBCUT SCH ×4 (09:05→21:39)
[2018-04-29] MEDS: Heparin VIAL(*) 5000 UNITS/ML VIAL (FIVE THOUSAND) SUBCUT SCH ×2 (09:05→21:39)
[2018-04-29] MEDS: Torsemide TAB* 20 MG PO SCH (09:05)
--- NOTE | 2018-04-29 17:16 | PN ---
Subjective Date of Service: 04/29/18 Interval History: pt reports he feels strong enough to go home and hopes to go home tomorrow. He agrees to hospice. He would like to keep his paul going home for comfort. He denies pain. reports good appetite. Objective Active Medications: Acetaminophen (Tylenol Tab*) 650 mg PO Q4H PRN PRN Reason: FEVER/PAIN Aspirin (Aspirin Ec Tab*) 81 mg PO DAILY [facility] Last Admin: 04/29/18 09:04 Dose: 81 mg Atorvastatin Calcium (Lipitor*) 10 mg PO DAILY [facility] Last Admin: 04/29/18 09:04 Dose: 10 mg Bupropion HCl (Wellbutrin Xl *) 150 mg PO DAILY [facility]; Protocol Last Admin: 04/29/18 09:05 Dose: 150 mg Calcium Acetate (Phoslo Cap*) 1,334 mg PO AC [facility] Last Admin: 04/29/18 12:43 Dose: 1,334 mg Clopidogrel Bisulfate (Plavix Tab*) 75 mg PO DAILY [facility] Last Admin: 04/29/18 09:04 Dose: 75 mg Dextrose (D50w Syringe 50 Ml*) 12.5 gm IV PUSH .FOR FS < 60 - SS PRN PRN Reason: FS < 60 Heparin Sodium (Porcine) (Heparin Vial(*)) 5,000 units SUBCUT Q12HR [facility] Last Admin: 04/29/18 09:05 Dose: 5,000 units Insulin Human Lispro (Humalog*) 0 units SUBCUT ACHS [facility]; Protocol Last Admin: 04/29/18 12:43 Dose: 6 unit Metolazone (Zaroxolyn Tab*) 5 mg PO DAILY@0830 [facility] Last Admin: 04/29/18 09:05 Dose: 5 mg Metoprolol Succinate (Toprol Xl Tab*) 25 mg PO BID [facility] Last Admin: 04/29/18 09:04 Dose: 25 mg Nitroglycerin (Nitroglycerin Tab 0.4 Mg*) 0.4 mg SL Q5M PRN PRN Reason: chest pain Tamsulosin HCl (Flomax Cap*) 0.4 mg PO BEDTIME [facility] Last Admin: 04/28/18 20:22 Dose: 0.4 mg Tiotropium [place] (Spiriva Cap.Inh*) 1 cap INH DAILY [facility] Last Admin: 04/29/18 07:44 Dose: 1 cap Torsemide (Demadex*) 20 mg PO DAILY [facility] Last Admin: 04/29/18 09:05 Dose: 20 mg Vital Signs - 8 hr 04/29/18 04/29/18 04/29/18 09:52 12:12 15:48 Temperature 98.6 F 97.6 F Pulse Rate 63 56 65 Respiratory 18 16 Rate Blood Pressure 130/60 144/48 134/54 (mmHg) O2 Sat by Pulse 97 99 99 Oximetry Oxygen Devices in Use Now: Nasal Cannula Appearance: 87 yo male A+O x3 in NAD. Eyes: No Scleral Icterus, PERRLA Ears/Nose/Mouth/Throat: Mucous Membranes Moist, - - multi missing teeth Respiratory: Symmetrical Chest Expansion and Respiratory Effort, Clear to Auscultation Cardiovascular: NL Sounds; No Murmurs; No JVD, RRR, No Edema Abdominal: NL Sounds; No Tenderness; No Distention Extremities: No Edema, No Clubbing, Cyanosis Neurological: Alert and Oriented x 3, NL Sensation, NL Muscle Strength and Tone Lines/Tubes/Other Access: Clean, Dry and Intact Peripheral IV Nutrition: Taking PO's - Nutrition: Malnutrition Diagnosis/Plan Malnutrition Assessment by Registered Dietitian: Malnutrition Assessment Clinical Characteristics Acute,Moderate Malnutrition Assessment: 11.6-19.2% wt loss x past month - severe Criteria <75% EEE x > 7 days Malnutrition Assessment: Pt with severe wt loss that appears to have been Interventions unintended per review of H&P and report of reduced appetite bar captain, despite conversation with pt today stating that wt loss was deliberate. Pt eating well here, so no intervention currently indicated; will follow for adequacy and make further recs as indicated. Malnutrition Assessment: Goals 1. Intake will remain adequate to maintain stable wt without further unintended wt loss 2. Phos will normalize with phos binder 3. Cr will stabilize to baseline value per hx CKD Result Diagrams: 04/28/18 05:57 04/28/18 08:38 Assess/Plan/Problems-Billing Assessment: - Patient Problems (1) SOB (shortness of breath) Comment: - multifactorial. Improving. - Likely due to CHF exacerbation, acute on chronic systolic HF, EF 25-30% - CXR shows persistent interstitial edema and remains oxygen dependent - I&Os - Lasix drip DCd, change to oral torsemide, continue metolazone - V/Q scan low probability for PE -TSH found to be normal -Continue low Sodium and heart healthy diet (2) Acute on chronic renal insufficiency Comment: - creatinine 4.9, multifactorial - Phos-lo started - Avoid nephro toxic meds - Urine output adequate - Patient electing Hospice, not likely candidate for dialysis - supportive care (3) CAD (coronary artery disease) Comment: - Continue ASA, Plavix, Atorvastatin, and Metoprolol (4) COPD (chronic obstructive pulmonary disease) Comment: - Spiriva, O2 as needed (5) HTN (hypertension) Comment: - BP labile, continue home meds (6) DVT prophylaxis Comment: SQ heparin Status and Disposition: Inpatient, plan for discharge to home hospice when optimized and hospice sign on can be arranged.
[2018-04-29] MEDS: Tamsulosin CAP* 0.4 MG PO SCH (21:39)
[2018-04-30] MEDS: Tiotropium CAP.INH* CAP.INH/18 MCG (USE ORDER SET !) INH SCH (07:42)
[2018-04-30] MEDS: BuPROPion XL* 150 MG TAB.XL PO SCH (08:57)
[2018-04-30] MEDS: Metolazone TAB* 5 MG PO SCH (08:57)
[2018-04-30] MEDS: Metoprolol Succinate XL TAB* 25 MG PO SCH (08:57)
[2018-04-30] MEDS: Torsemide TAB* 20 MG PO SCH (08:58)
[2018-04-30] MEDS: Aspirin EC TAB* 81 MG TAB.EC PO SCH (08:58)
[2018-04-30] MEDS: Clopidogrel TAB* 75 MG PO SCH (08:58)
[2018-04-30] MEDS: Atorvastatin* 10 MG TAB PO SCH (08:58)
[2018-04-30] MEDS: Calcium Acetate CAP* 667 MG PO SCH ×2 (08:58→12:09)
[2018-04-30] MEDS: Insulin LISPRO* 1 UNITS UNIT SUBCUT SCH ×2 (09:00→12:09)
[2018-04-30] MEDS: Heparin VIAL(*) 5000 UNITS/ML VIAL (FIVE THOUSAND) SUBCUT SCH (09:00)
[2018-04-30 11:51] VITALS: BP 139/46
--- NOTE | 2018-04-30 14:43 | PN ---
Subjective Date of Service: 04/30/18 Interval History: patient reports he is ready to go home. he denies SOB. Reports he feels steady on his feet. Pts and sister in law at bedside agree with plan for DC to home today. Objective Active Medications: Acetaminophen (Tylenol Tab*) 650 mg PO Q4H PRN PRN Reason: FEVER/PAIN Aspirin (Aspirin Ec Tab*) 81 mg PO DAILY [facility] Last Admin: 04/30/18 08:58 Dose: 81 mg Atorvastatin Calcium (Lipitor*) 10 mg PO DAILY [facility] Last Admin: 04/30/18 08:58 Dose: 10 mg Bupropion HCl (Wellbutrin Xl *) 150 mg PO DAILY [facility]; Protocol Last Admin: 04/30/18 08:57 Dose: 150 mg Calcium Acetate (Phoslo Cap*) 1,334 mg PO AC [facility] Last Admin: 04/30/18 12:09 Dose: 1,334 mg Clopidogrel Bisulfate (Plavix Tab*) 75 mg PO DAILY [facility] Last Admin: 04/30/18 08:58 Dose: 75 mg Dextrose (D50w Syringe 50 Ml*) 12.5 gm IV PUSH .FOR FS < 60 - SS PRN PRN Reason: FS < 60 Heparin Sodium (Porcine) (Heparin Vial(*)) 5,000 units SUBCUT Q12HR [facility] Last Admin: 04/30/18 09:00 Dose: 5,000 units Insulin Human Lispro (Humalog*) 0 units SUBCUT ACHS [facility]; Protocol Last Admin: 04/30/18 12:09 Dose: 6 unit Metolazone (Zaroxolyn Tab*) 5 mg PO DAILY@0830 [facility] Last Admin: 04/30/18 08:57 Dose: 5 mg Metoprolol Succinate (Toprol Xl Tab*) 25 mg PO BID [facility] Last Admin: 04/30/18 08:57 Dose: 25 mg Nitroglycerin (Nitroglycerin Tab 0.4 Mg*) 0.4 mg SL Q5M PRN PRN Reason: chest pain Tamsulosin HCl (Flomax Cap*) 0.4 mg PO BEDTIME [facility] Last Admin: 04/29/18 21:39 Dose: 0.4 mg Tiotropium Lignite (Spiriva Cap.Inh*) 1 cap INH DAILY [facility] Last Admin: 04/30/18 07:42 Dose: 1 cap Torsemide (Demadex*) 20 mg PO DAILY [facility] Last Admin: 04/30/18 08:58 Dose: 20 mg Vital Signs - 8 hr 04/30/18 04/30/18 04/30/18 07:43 08:00 08:01 Temperature Pulse Rate 58 58 Respiratory 14 18 Rate Blood Pressure 125/56 (mmHg) O2 Sat by Pulse 99 97 Oximetry 04/30/18 11:47 Temperature 98.0 F Pulse Rate 62 Respiratory 16 Rate Blood Pressure 139/46 (mmHg) O2 Sat by Pulse 97 Oximetry Oxygen Devices in Use Now: Nasal Cannula Appearance: 87 yo male A+O x3 in NAD Eyes: No Scleral Icterus, PERRLA Ears/Nose/Mouth/Throat: Mucous Membranes Moist Respiratory: Symmetrical Chest Expansion and Respiratory Effort, Clear to Auscultation Cardiovascular: NL Sounds; No Murmurs; No JVD, No Edema Abdominal: NL Sounds; No Tenderness; No Distention Extremities: No Edema, No Clubbing, Cyanosis Skin: No Rash or Ulcers, No Nodules or Sclerosis Neurological: Alert and Oriented x 3, NL Sensation, NL Muscle Strength and Tone Lines/Tubes/Other Access: Clean, Dry and Intact Peripheral IV Nutrition: Taking PO's - Nutrition: Malnutrition Diagnosis/Plan Malnutrition Assessment by Registered Dietitian: Malnutrition Assessment Clinical Characteristics Acute,Moderate Malnutrition Assessment: 11.6-19.2% wt loss x past month - severe Criteria <75% EEE x > 7 days Malnutrition Assessment: Pt with severe wt loss that appears to have been Interventions unintended per review of H&P and 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 Pt eating well here, so no intervention currently indicated; will follow for adequacy and make further recs as indicated. Malnutrition Assessment: Goals 1. Intake will remain adequate to maintain stable wt without further unintended wt loss 2. Phos will normalize with phos binder 3. Cr will stabilize to baseline value per hx CKD Result Diagrams: 04/28/18 05:57 04/28/18 08:38 Assess/Plan/Problems-Billing Assessment: 87 yo male with PMH of CAD, diastolic HF, CKD, COPD, BPH, DM2, HTN who presented to the ER with SOB who was found to have acute systolic and diastolic HF, cardiomegaly with interstitial edema, EF 25-30%, worsening renal failure, malnutrition with a >10% weight loss in the past year who is going home on hospice - Patient Problems (1) SOB (shortness of breath) Comment: - multifactorial. Stable - plan for DC to home with hospice sign on tomorrow - Likely due to CHF exacerbation, acute on chronic systolic and diastolic HF, EF 25-30% - CXR shows persistent interstitial edema and remains oxygen dependent - but improved from admission - I&Os - Continue torsemide, continue metolazone - V/Q scan low probability for PE -TSH found to be normal -Continue low Sodium and heart healthy diet - DC beverly (2) Acute on chronic renal insufficiency Comment: - creatinine 4.9, multifactorial - Phos-lo started - Avoid nephro toxic meds - Urine output adequate - Patient electing Hospice, not likely candidate for dialysis - supportive care (3) CAD (coronary artery disease) Comment: - Continue ASA, Plavix, Atorvastatin, and Metoprolol (4) COPD (chronic obstructive pulmonary disease) Comment: - Spiriva, O2 as needed (5) HTN (hypertension) Comment: - BP labile, continue home meds (6) DVT prophylaxis Comment: SQ heparin Status and Disposition: Inpatient, plan for discharge to home today, hospice sign on tomorrow
--- NOTE | 2018-05-01 03:07 | DS ---
DISCHARGE SUMMARY: DATE OF ADMISSION: 04/24/18 DATE OF DISCHARGE: 04/30/18 PROVIDER: Thuy Tamez NP ATTENDING PHYSICIAN: Dr. Sadler * (report dictated by Thuy Tamez NP). PRIMARY CARE PROVIDER: Dr. Shine. DISCHARGE DIAGNOSES: 1. Acute on chronic diastolic and systolic heart failure. 2. Acute on chronic renal failure. 3. Malnutrition. SECONDARY DIAGNOSES: 1. Non-insulin type 2 diabetes. 2. Coronary artery disease. 3. Benign prostatic hyperplasia. 4. Chronic obstructive pulmonary disease. 5. Hypertension. DISCHARGE MEDICATIONS: 1. Torsemide 10 mg p.o. daily. 2. Zaroxolyn 5 mg p.o. every other day (new medication). 3. Acetaminophen 60 mg p.o. q.6 hours p.r.n. 4. Amlodipine 5 mg p.o. daily. 5. Aspirin 81 mg p.o. daily. 6. Lipitor 10 mg p.o. daily. 7. Wellbutrin XR 150 mg p.o. daily. 8. Plavix 75 mg p.o. daily. 9. Glimepiride 1 mg p.o. q.a.m. 10. Metoprolol succinate XL 25 mg p.o. b.i.d. 11. Nitroglycerin 0.4 mg sublingual q.5 minutes p.r.n. 12. Flomax 0.4 mg p.o. at bedtime. 13. Spiriva 1 cap INH daily. HISTORY OF PRESENT ILLNESS AND HOSPITAL COURSE: Please see history and physical by Dr. Flavia Gaspar, for full admission details; but in summary, this is an 87-year- old male with a past medical history of coronary artery disease, chronic kidney disease, diastolic heart failure, [id number] type 2 diabetes, who presented to the emergency department on 04/24/18 with a complaint of shortness of breath, who was admitted to the hospitalist service, found to have acute on chronic systolic and diastolic heart failure. The patient was found to be volume overloaded on exam and with noted BNP of 2205. On admission, he was found to have a chest x-ray consistent with pulmonary vascular congestion. As well, he presented with a creatinine of 4.67, which trended up to 4.9 and which is quite elevated above his baseline of around 1.5 to 1.8. The patient was gently diuresed and his overall respiratory status has improved; however, he still remains on 2 L nasal cannula. He has had a resolution of his shortness of breath; however, the oxygen has not been able to be titrated off and the plan is to send the patient home with oxygen of 2 L. Off oxygen, he was noted to have an O2 sat of 86% on room air today. The patient was seen and evaluated by palliative physician, Dr. Gretel Christensen, who discussed with the patient and his that he does qualify for hospice with his EF of 25% to 30% with systolic and diastolic heart failure. EGFR of 11.2. Albumin is 2.6 and he has lost more than 10% of his weight in the last year showing malnutrition. The patient made himself a DNR. The patient opted to go home with hospice services. Throughout the hospital, he refused a lot of lab draws, did not want invasive care. I discussed with the patient and his that he is going home on a new medication, Zaroxolyn, which has been every day; however, I am going to make this every other day and if he does have an increase in shortness of breath or weight gain, he could take a p.r.n. dose on the days that he does not take it. The patient was noted to have elevated troponins of 0.08 and 0.07 thought to be secondary to demand ischemia. The patient's blood sugars have been fairly well controlled throughout the hospitalization. He has remained hemodynamically stable throughout the hospitalization. The patient is ambulating in his room with a walker with a steady gait and is stable for discharge to home. Renal ultrasound showed, impression: 1. Kidneys are increased for echogenicity suggestive of medical renal disease. 2. No evidence for hydronephrosis. 3. Possible small bilateral nonobstructing calculi. 4. Lung scan V/Q nuclear medicine, impression: No evidence of ventilation or perfusion mismatches. This is consistent with a low probability scan for pulmonary emboli. DISCHARGE PLAN: 1. The patient will be discharged home with his , who agrees with the plan for discharge. 2. Hospice sign on tomorrow at 10 a.m. 3. The patient was encouraged to follow up with his primary care provider, Dr. Lucila Shine. 4. The patient will be sent home with home oxygen. TIME SPENT: Approximately 60 minutes was spent on this discharge. THUY TAMEZ, KAREN [id number]/[facility] #: [id number] JULIO
== END 2018-04-30 16:46 | disposition home health service (06) | DRG 291 ==
LOC: ED 13:49 → MEDTELE 16:44
PROVIDERS: ADMIT Internal Medicine; ATTEND Internal Medicine
DX: I13.0 Hypertensive heart and chronic kidney disease with heart failure and stage 1 through stage 4 chronic kidney disease, or unspecified chronic kidney disease (principal); I50.43 Acute on chronic combined systolic (congestive) and diastolic (congestive) heart failure; N17.9 Acute kidney failure, unspecified; E46 Unspecified protein-calorie malnutrition; I24.8 Other forms of acute ischemic heart disease; N18.9 Chronic kidney disease, unspecified; E11.22 Type 2 diabetes mellitus with diabetic chronic kidney disease; I25.10 Atherosclerotic heart disease of native coronary artery without angina pectoris; N40.0 Benign prostatic hyperplasia without lower urinary tract symptoms; J44.9 Chronic obstructive pulmonary disease, unspecified; F17.210 Nicotine dependence, cigarettes, uncomplicated; N20.0 Calculus of kidney; I45.10 Unspecified right bundle-branch block; Z66 Do not resuscitate; Z68.27 Body mass index [BMI] 27.0-27.9, adult; Z79.82 Long term (current) use of aspirin; Z95.5 Presence of coronary angioplasty implant and graft; Z79.02 Long term (current) use of antithrombotics/antiplatelets; Z79.84 Long term (current) use of oral hypoglycemic drugs; Z99.81 Dependence on supplemental oxygen
CPT/HCPCS: 36415; 71046; 76775; 78582; 80053; 82306; 82553; 82570; 83605; 83735; 83880; 83970; 84100; 84443; 84484; 84540; 85025; 85027; 85060; 85379; 85610; 85730; 86140; 93005; 93306; 94640; 99283; A9270-GY; A9540; A9558; G8978-GP-CJ; G8979-GP-CI; J1644; J1650; J1940; J3475